=== PATIENT | female | born 1990 | race Caucasian/White ===

== ENCOUNTER 2018-08-18 14:03 | Emergency (ER) | payer OTHER, SELFPAY ==
[2018-08-18] MEDS ORDERED: LIDOCAINE 1% MPF 5 ML VIAL ONE (14:38)
--- NOTE | 2018-08-18 15:18 | ER ---
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 Pt has a chin laceration. Reports she didn't get a lot of sleep last night. Transition of care: patient was not received from another setting of care. Complicating Factors: There are no complicating factors for this patient. Onset of symptoms was August 18, 2018. Care prior to arrival: None. 14:09 Method Of Arrival: Ambulatory sv 14:09 Acuity: ANSHUL 3 sv 15:11 Risk Assessment: Do you want to hurt yourself or someone else? Patient reports no ph desire to harm self or others. Initial Sepsis Screen: Does the patient meet any 2 criteria? No. Patient's initial sepsis screen is negative. Does the patient have a suspected source of infection? No. Patient's initial sepsis screen is negative. Triage Assessment: 14:09 General: Appears in no apparent distress. uncomfortable, slender, Behavior is calm, sv cooperative. Pain: Denies pain. Neuro: Level of Consciousness is awake, alert, obeys commands, Oriented to person, place, time, situation, Moves all extremities. Full function Gait is steady, Speech is normal, Reports a syncopal episode. Respiratory: Airway is patent Respiratory effort is even, unlabored, Respiratory pattern is regular, symmetrical. Historical: - Allergies: 14:10 No Known Allergies; sv - PMHx: 14:10 None; sv - PSHx: 14:10 None; sv - Immunization history:: Flu vaccine is not up to date. - Social history:: Smoking status: Patient uses tobacco products, smokes one-half pack cigarettes per day. - Ebola Screening: : No symptoms or risks identified at this time. Screenin:09 Abuse screen: Denies threats or abuse. Denies injuries from another. Nutritional ph screening: No deficits noted. Tuberculosis screening: No symptoms or risk factors identified. Fall Risk Fall in past 12 months (25 points). No secondary diagnosis (0 pts). Assessment: 14:30 General: Appears in no apparent distress. comfortable, slender, well groomed, Behavior ph is calm, cooperative, appropriate for age, quiet, Denies fever, feeling ill. Pain: Denies pain. Neuro: Level of Consciousness is awake, alert, obeys commands, Oriented to person, place, time, situation, Reports dizziness, a syncopal episode Denies blurred vision headache. Cardiovascular: Reports fatigue, lightheadedness, syncope, Denies chest pain, shortness of breath, vomiting, Capillary refill < 3 seconds in bilateral fingers Patient's skin is warm and dry. Rhythm is regular. Respiratory: Airway is patent Respiratory effort is even, unlabored, Respiratory pattern is regular, symmetrical. GI: No signs and/or symptoms were reported involving the gastrointestinal system. Patient currently denies abdominal pain, nausea, vomiting. : No signs and/or symptoms were reported regarding the genitourinary system. Denies burning with urination, urinary frequency. Derm: Skin is pink, warm \\T\\ dry. Musculoskeletal: Circulation, motion, and sensation intact. Range of motion: intact in all extremities. Injury Description: Laceration sustained to chin is 0.5 to 2.5 cm long, not bleeding. 14:40 Reassessment: Patient appears in no apparent distress at this time. Patient is alert, ph oriented x 3, equal unlabored respirations, skin warm/dry/pink. Orthostatic BP obtained per ERP order, when pt moved from sitting to standing position HR noted to increase from 70 bpm to 135 bpm, (see vitals), pt placed on bedside medicaid service coordinator, rhythm sinus tach, ERP notified. 14:50 Reassessment: Pt refusing IV and fluids at this time, states, " I just want to get my ph stitches and go." Pt encouraged to stay for blood work and to receive IV fluids for dehydration, pt continues to refuse to stay, states, " I'll be sure and drink a lot of water when I get home." ERP notified. 15:02 Reassessment: Patient appears in no apparent distress at this time. ERP at bedside to ph speak w/ pt, pt continues to state that she wishes to leave after sutures are placed, pt to leave AMA. Vital Signs: 14:10 BP 110 / 72; Pulse 76; Resp 16; Temp 98.7; Pulse Ox 96% ; Weight 45.36 kg; Height 5 ft. sv 6 in. (167.64 cm); Pain 0/10; 14:40 BP 111 / 79 Supine; Pulse 63; ph 14:41 BP 106 / 69 Sitting; Pulse 130; ph 14:42 BP 75 / 65 Standing; Pulse 143; ph 14:10 Body Mass Index 16.14 (45.36 kg, 167.64 cm) sv ED Course: 14:06 Patient arrived in ED. as 14:10 Triage completed. sv 14:11 Arm band placed on Patient placed in an exam room, on a stretcher. sv 14:14 Mignon Calhoun RN is Primary Nurse. ph 14:16 Shannan Mendoza FNP-C is PHCP. kb 14:16 Jerardo Arriaza MD is Attending Physician. kb 14:33 EKG done, by ED staff, reviewed by Shannan PEÑA. em1 14:45 Patient has correct armband on for positive identification. Placed in gown. Bed in low ph position. Call light in reach. Side rails up X 1. bundles hanger on. Pulse ox on. NIBP on. 15:11 No provider procedures requiring assistance completed. Patient did not have IV access ph during this emergency room visit. 15:13 Assist provider with laceration repair on chin that was 2.5 cm. or less using sutures. ph Set up tray. Performed by Shannan PEÑA Patient tolerated well. Administered Medications: 14:56 Drug: Lidocaine (1 %) 1 vials Volume: 20 ml; Route: Infiltration; ph 15:42 Follow up: Response: No adverse reaction ph 15:13 CANCELLED (Patient Refused): NS 0.9% 1000 ml IV at 1000 ml once kb Outcome: 15:41 AMA AMA form signed ph 15:41 unknown 15:41 Instructed on encouraged to return to ED if symptoms worsen 15:43 Patient left the ED. ph Signatures: Shannan Mendoza FNP-C FNP-Ckb Verde, Stephanie, RN RN Klaudia Pérez Eric em1 Mignon Calhoun RN RN ph
--- NOTE | 2018-08-18 15:18 | EDPHYS ---
Physician Documentation [facility] Name: Venecia Aguilar Age: 28 yrs Sex: Female : 1990 Arrival Date: 08/18/2018 Time: 14:06 Bed 6 Private MD: ED Physician Jerardo Arriaza HPI: 08/18 14:31 This 28 yrs old Female presents to ER via Ambulatory with complaints of kb Laceration To Chin, Syncope. 14:31 The patient has a laceration related to: falling from a standing position, occurred at kb work, and there are no complicating factors. The injury was accidental. The laceration(s) is(are) located on the chin. Onset: The symptoms/episode began/occurred just prior to arrival. Associated signs and symptoms: Pertinent positives: dizziness, Pertinent negatives: deformity, heavy bleeding, loss of consciousness, numbness distal to injury, suspected foreign body. The patient has not experienced similar symptoms in the past. The patient has not recently seen a physician. Pt states she was laying down at work, got up too quickly, felt dizzy then passed out and fell causing laceration to chin. States she often gets dizzy when he changes positions too quickly. States "I feel fine now.". Historical: - Allergies: 14:10 No Known Allergies; sv - PMHx: 14:10 None; sv - PSHx: 14:10 None; sv - Immunization history:: Flu vaccine is not up to date. - Social history:: Smoking status: Patient uses tobacco products, smokes one-half pack cigarettes per day. - Ebola Screening: : No symptoms or risks identified at this time. ROS: 14:31 Constitutional: Negative for fever, chills, and weight loss, Eyes: Negative for injury, kb pain, redness, and discharge, ENT: Negative for injury, pain, and discharge, Neck: Negative for injury, pain, and swelling, Cardiovascular: Negative for chest pain, palpitations, and edema, Respiratory: Negative for shortness of breath, cough, wheezing, and pleuritic chest pain, Abdomen/GI: Negative for abdominal pain, nausea, vomiting, diarrhea, and constipation, MS/Extremity: Negative for injury and deformity. 14:31 Skin: Positive for laceration(s), of the chin. 14:31 Neuro: Positive for dizziness, syncope. Exam: 14:34 Constitutional: This is a well developed, well nourished patient who is awake, alert, kb and in no acute distress. Eyes: Pupils equal round and reactive to light, extra-ocular motions intact. Lids and lashes normal. Conjunctiva and sclera are non-icteric and not injected. Cornea within normal limits. Periorbital areas with no swelling, redness, or edema. ENT: Nares patent. No nasal discharge, no septal abnormalities noted. Tympanic membranes are normal and external auditory canals are clear. Oropharynx with no redness, swelling, or masses, exudates, or evidence of obstruction, uvula midline. Mucous membranes moist. Neck: Trachea midline, no thyromegaly or masses palpated, and no cervical lymphadenopathy. Supple, full range of motion without nuchal rigidity, or vertebral point tenderness. No Meningismus. Chest/axilla: Normal chest wall appearance and motion. Nontender with no deformity. No lesions are appreciated. Cardiovascular: Regular rate and rhythm with a normal S1 and S2. No gallops, murmurs, or rubs. Normal PMI, no JVD. No pulse deficits. Respiratory: Lungs have equal breath sounds bilaterally, clear to auscultation and percussion. No rales, rhonchi or wheezes noted. No increased work of breathing, no retractions or nasal flaring. Abdomen/GI: Soft, non-tender, with normal bowel sounds. No distension or tympany. No guarding or rebound. No evidence of tenderness throughout. MS/ Extremity: Pulses equal, no cyanosis. Neurovascular intact. Full, normal range of motion. Neuro: Awake and alert, GCS 15, oriented to person, place, time, and situation. Cranial nerves II-XII grossly intact. Motor strength 5/5 in all extremities. Sensory grossly intact. Cerebellar exam normal. Normal gait. 14:34 Head/face: Noted is no obvious of injury or deformity except a laceration(s), that is superficial, 3 cm(s), of the chin. Vital Signs: 14:10 BP 110 / 72; Pulse 76; Resp 16; Temp 98.7; Pulse Ox 96% ; Weight 45.36 kg; Height 5 ft. sv 6 in. (167.64 cm); Pain 0/10; 14:40 BP 111 / 79 Supine; Pulse 63; ph 14:41 BP 106 / 69 Sitting; Pulse 130; ph 14:42 BP 75 / 65 Standing; Pulse 143; ph 14:10 Body Mass Index 16.14 (45.36 kg, 167.64 cm) sv Laceration: 15:12 Wound Repair of 3cm ( 1.2in ) subcutaneous laceration to chin. Irregularly shaped.. kb Distal neuro/vascular/tendon intact. Anesthesia: Wound infiltrated with 2.5 mls of 1% lidocaine. Wound prep: Extensive cleansing with hibiclenz by me, Wound irrigation with saline by me. Skin closed with 6 5-0 Prolene using interrupted sutures and sterile technique. Dressed with Neosporin. Patient tolerated well. MDM: 14:16 Patient medically screened. kb 14:34 Data reviewed: vital signs, nurses notes. Data interpreted: Pulse oximetry: on room air kb is 96 %. Interpretation: normal. 15:14 Refusal of service: The patient/guardian displays adequate decision making capability kb and despite a detailed discussion of alternatives, benefits, risks, and consequences refuses: all lab tests, Medications. ED course: Pt educated on need for IV fluids due to positive orthostatics. Pt refuses IV, labs and IV fluids. "I just want to get my chin fixed and go." Educated that the dizziness upon standing and syncope are caused by orthostatic hypotension and that the fluids would help her symptoms. Pt still refuses treatment. Mother states "I'll watch her." Educated to increase fluid intake. 15:50 ED course: Dr Arriaza also discussed need for treatment with pt. Pt still refused kb intervention. 08/18 14:23 Order name: EKG; Complete Time: 14:24 kb 08/18 14:23 Order name: Prolene, Sutures; Complete Time: 14:56 kb 08/18 14:23 Order name: Dressing - Wound; Complete Time: 14:56 kb 08/18 14:23 Order name: Gloves, Sterile; Complete Time: 14:56 kb 08/18 14:23 Order name: Setup Suture Tray; Complete Time: 14:56 kb 08/18 14:23 Order name: EKG - Nurse/Tech; Complete Time: 14:33 kb 08/18 14:23 Order name: Orthostatics; Complete Time: 15:42 kb Administered Medications: 14:56 Drug: Lidocaine (1 %) 1 vials Volume: 20 ml; Route: Infiltration; ph 15:42 Follow up: Response: No adverse reaction ph 15:13 CANCELLED (Patient Refused): NS 0.9% 1000 ml IV at 1000 ml once Disposition: 17:31 Co-signature as Attending Physician, Jerardo Arriaza MD. gs 17:31 spoke to pt at length begged her to stay and get fluids pt refused. Disposition: 08/18/18 15:17 Patient has left against medical advice. Impression: Syncope and collapse, Orthostatic hypotension, Laceration without foreign body of unspecified part of neck - chin. - Patients states they are going to Home. - Condition is Fair. - Discharge Instructions: Orthostatic Hypotension, Facial Laceration, [id number], Syncope, [id number]. Work release form form. Follow up: Emergency Department; When: As needed; Reason: Worsening of condition. Follow up: Private Physician; When: 2 - 3 days; Reason: Recheck today's complaints, Continuance of care, Re-evaluation by your physician. - Problem is new. - Symptoms are unchanged. Signatures: Dispatcher [employer] EDIN Shannan Mendoza, KAITY-C REGISTERED MEDICAL TRANSCRIPTIONIST-Meri Cole, RN RN Mignon Almanza RN RN ph Starr, Gregory, MD MD Corrections: (The following items were deleted from the chart) 15:13 15:13 NS 0.9% 1000 ml IV at 1000 ml once ordered. kb kb 15:13 15:13 IV Saline Lock ordered. kb kb 15:17 14:24 Head Brain Wo Cont+CT.RAD.BRZ ordered. [facility] 15:43 15:17 08/18/2018 15:17 Patients has left against medical advice. Impression: Syncope ph and collapse; Orthostatic hypotension; Laceration without foreign body of unspecified part of neck - chin. Patient states they are going to Home. Condition is Fair. Follow up: Emergency Department; When: As needed; Reason: Worsening of condition. Follow up: Private Physician; When: 2 - 3 days; Reason: Recheck today's complaints, Continuance of care, Re-evaluation by your physician. Problem is new. Symptoms are unchanged. kb
--- NOTE | 2018-08-18 22:41 | EKG ---
Test Date: 2018-08-18 Test Time: 14:27:28 [employer]er: NICOLETTE MEASUREMENT RESULTS: Intervals: Rate: 73 [place]: 154 QRSD: 82 QT: 402 QTc: 442 [place]: P: 66 [place]: 154 QRS: 75 T: 73 INTERPRETIVE STATEMENTS: Normal sinus rhythm with sinus arrhythmia Normal ECG Compared to ECG 04/03/2009 16:39:24 No significant changes Electronically Signed On 08-18-18 22:40:44 FIRST CRUSHER by Matty Mcpherson
== END 2018-08-18 15:43 | disposition left against medical advice (07) ==
LOC: ER 14:03
PROC: 0JQ10ZZ Repair Face Subcutaneous Tissue and Fascia, Open Approach (ICD-10-PCS; principal; 2018-08-18)
DX: S01.81XA Laceration without foreign body of other part of head, initial encounter (principal); I95.1 Orthostatic hypotension; W18.39XA Other fall on same level, initial encounter; Y93.89 Activity, other specified; Y92.89 Other specified places as the place of occurrence of the external cause; Y99.8 Other external cause status; F17.210 Nicotine dependence, cigarettes, uncomplicated
CPT/HCPCS: 93005; 99284

== ENCOUNTER 2018-08-24 08:44 | Emergency (ER) | payer SELFPAY ==
[2018-08-24] MEDS ORDERED: NA CHLORIDE 0.9% 1,000 ML ONE (09:29)
[2018-08-24 09:33] LABS: Urine Blood 2+ (NEG); Urine Glucose NEGATIVE (NEG); Urine Protein 1+ (NEG); Urine pH 5.5 (5.0-7.0)
[2018-08-24 09:33] LABS: Urine Bacteria <20 /HPF (<20); Urine Culture Reflex Order NOT NEEDED; Urine Mucus 2+ /HPF (NONE SEEN); Urine RBC 20-50 /HPF (NONE SEEN)
[2018-08-24 10:39] LABS: Albumin 3.9 g/dL (3.4-5.0); Bilirubin Direct 0.2 mg/dL (0-0.2); Bilirubin Total 0.7 mg/dL (0.2-1.0); Potassium 3.4 mmol/L (3.5-5.1); Protein, Total 7.7 g/dL (6.4-8.2); Thyroid Stimulating Hormone 0.363 uIU/mL (0.360-3.740)
[2018-08-24 11:28] LABS: Benzodiazepines NEGATIVE (NEGATIVE); Cocaine POSITIVE (NEGATIVE); METHAMPHETAM NEGATIVE (NEGATIVE); Phencyclidine NEGATIVE (NEGATIVE)
[2018-08-24 11:29] LABS: Barbiturates NEGATIVE (NEGATIVE); Methadone NEGATIVE (NEGATIVE); Opiates NEGATIVE (NEGATIVE); THC Cannibis POSITIVE (NEGATIVE)
--- NOTE | 2018-08-24 12:40 | ER ---
Nurse's Notes [facility] Name: Venecia Aguilar Age: 28 yrs Sex: Female : 1990 Arrival Date: 08/24/2018 Time: 08:46 Bed 14 Private MD: Diagnosis: Abnormal uterine and vaginal bleeding, unspecified;Other stimulant abuse-Cocaine, THC Presentation: 08/24 08:58 Presenting complaint: Patient states: "For the last 2 weeks every time my boyfriend and jl7 I have intercourse I bleed. For the last 3 days the bleeding hasn't stopped." Reports going to the doctor yesterday and they put her on an antibiotic for possible UTI. Transition of care: patient was not received from another setting of care. Onset of symptoms was August 21, 2018. Risk Assessment: Do you want to hurt yourself or someone else? Patient reports no desire to harm self or others. Initial Sepsis Screen: Does the patient meet any 2 criteria? No. Patient's initial sepsis screen is negative. Does the patient have a suspected source of infection? No. Patient's initial sepsis screen is negative. Care prior to arrival: None. 08:58 Method Of Arrival: Ambulatory [facility] 08:58 Acuity: ANSHUL 3 jl7 Triage Assessment: 09:01 General: Appears in no apparent distress. uncomfortable, Behavior is cooperative, jl7 anxious, crying. Pain: Denies pain. EENT: No signs and/or symptoms were reported regarding the EENT system. Neuro: Level of Consciousness is awake, alert, obeys commands, Oriented to person, place, time, situation. Cardiovascular: Respiratory: Airway is patent Respiratory effort is even, unlabored, Respiratory pattern is regular, symmetrical. GI: No signs and/or symptoms were reported involving the gastrointestinal system. : Reports vaginal bleeding that is bright red, with clots. Derm: Skin is pink, warm \\T\\ dry. RETAIL GROCER: 09:01 LMP 08/07/2018 jl7 Historical: - Allergies: 09:01 No Known Allergies; jl7 - Home Meds: 09: None [Active]; jl7 - PMHx: 09: None; jl7 - PSHx: 09: None; jl7 - Immunization history:: Adult Immunizations unknown. - Social history:: Smoking status: Patient uses tobacco products, smokes one-half pack cigarettes per day, Patient uses street drugs, marijuana. - Ebola Screening: : No symptoms or risks identified at this time. Screenin:15 Abuse screen: Denies threats or abuse. Denies injuries from another. Nutritional [facility] screening: No deficits noted. Tuberculosis screening: No symptoms or risk factors identified. Fall Risk IV access (20 points). Total Ramesh Fall Scale indicates No Risk (0-24 pts). Assessment: 09:15 General: See triage assessment. [facility] 10:15 Reassessment: Patient appears in no apparent distress at this time. No changes from [facility] previously documented assessment. Patient and/or family updated on plan of care and expected duration. Pain level reassessed. Patient is alert, oriented x 3, equal unlabored respirations, skin warm/dry/pink. 11:15 Reassessment: Patient appears in no apparent distress at this time. Patient and/or [facility] family updated on plan of care and expected duration. Pain level reassessed. Patient is alert, oriented x 3, equal unlabored respirations, skin warm/dry/pink. 11:40 Reassessment: Pt prescribed Cipro yesterday for UTI. [facility] 12:35 Reassessment: Pt yelling at her mom. Pt attempted to leave the facility with the IV in [facility] her arm, informed pt that if she left with the IV we would have to call the report manager, pt turned around and ripped the IV out then left the facility. Pt's mom apologized. Pt got into the mom's vehicle. Vital Signs: 09:01 BP 121 / 76; Pulse 100; Resp 16 S; Temp 98.2; Pulse Ox 100% on R/A; Weight 47.17 kg [facility] (R); Height 5 ft. 6 in. (167.64 cm) (R); Pain 0/10; 10:22 BP 90 / 57; Pulse 64; Resp 15; Temp 98.4(O); Pulse Ox 100% on R/A; 5 11:48 BP 99 / 60; Pulse 89; Resp 16 S; Pulse Ox 100% on R/A; 7 09:01 Body Mass Index 16.79 (47.17 kg, 167.64 cm) [facility] ED Course: 08:46 Patient arrived in ED. mr 08:48 Yu Mariscal, RN is Primary Nurse. 7 08:50 [facility] snw 08:50 Iker Schafer MD is Attending Physician. [facility] 09:00 Triage completed. jl7 09:01 Arm band placed on right wrist. jl7 09:15 Patient has correct armband on for positive identification. Bed in low position. Call [facility] light in reach. Side rails up X 1. Pulse ox on. NIBP on. Warm blanket given. :27 Urine collected: clean catch specimen, cloudy. [facility] : Urine Drug Screen Sent. [facility] : Urine Culture Sent. [facility] : Urine Microscopic Only Sent. [facility] :30 Inserted saline lock: 20 gauge in right antecubital area, using aseptic technique. [facility] Blood collected. :30 Initial lab(s) drawn, by me, sent to lab. 7 12:35 No provider procedures requiring assistance completed. IV discontinued, pt ripped the [facility] IV out, unsure if bleeding was controlled at this time. Administered Medications: 09:50 Drug: NS 0.9% 1000 ml Route: IV; Rate: 1 bolus; Site: right antecubital; 7 11:00 Follow up: IV Status: Completed infusion [facility] Outcome: 12:40 Discharge ordered by . [facility] 12:41 Discharged to home ambulatory. jl7 12:41 Condition: stable 12:41 Discharge instructions given to family, Instructed on discharge instructions, follow up and referral plans. Demonstrated understanding of instructions, follow-up care. 13:04 Patient left the ED. [facility] Signatures: Deneen Galan FNP-C FNP-Diana Indy Francois Sherri [facility] Yu Mariscal, RN RN 7
--- NOTE | 2018-08-24 12:41 | EDPHYS ---
Physician Documentation [facility] Name: Venecia Aguilar Age: 28 yrs Sex: Female : 1990 Arrival Date: 08/24/2018 Time: 08:46 Bed 14 Private MD: ED Physician Iker Schafer HPI: 08/24 09:11 This 28 yrs old Female presents to ER via Ambulatory with complaints of snw Vaginal Bleeding. 09:11 The patient presents with vaginal bleeding that is heavy, with clots. Onset: The snw symptoms/episode began/occurred gradually, 2 week(s) ago, and became worse yesterday. Associated signs and symptoms: Pertinent positives: vaginal bleeding. Severity of symptoms: At their worst the symptoms were moderate. The patient is sexually active, reportedly has a single partner, does not use protection during intercourse. The patient's method of control includes depo. It is unknown whether or not the patient has had similar symptoms in the past. The patient has been recently seen by a physician: The patient has been recently seen at the [facility] Emergency Department, last week, left AMA 2nd with hypotension and hypovolemia. 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 - Social history:: Smoking status: Patient uses tobacco products, smokes one-half pack cigarettes per day, Patient uses street drugs, marijuana. - Ebola Screening: : No symptoms or risks identified at this time. ROS: 09:16 Constitutional: Negative for fever, chills, and weight loss, Eyes: Negative for injury, snw pain, redness, and discharge, ENT: Negative for injury, pain, and discharge, Neck: Negative for injury, pain, and swelling, Cardiovascular: Negative for chest pain, palpitations, and edema, Respiratory: Negative for shortness of breath, cough, wheezing, and pleuritic chest pain, Abdomen/GI: Negative for abdominal pain, nausea, vomiting, diarrhea, and constipation, Back: Negative for injury and pain, MS/Extremity: Negative for injury and deformity, Skin: Negative for injury, rash, and discoloration, Neuro: Negative for headache, weakness, numbness, tingling, and seizure. 09:16 : Positive for vaginal bleeding. Exam: 09:16 Constitutional: This is a well developed, cachectic patient who is awake, alert, and snw anxious. Head/Face: Normocephalic, atraumatic. Eyes: Pupils equal round and reactive to light, extra-ocular motions intact. Lids and lashes normal. Conjunctiva and sclera are non-icteric and not injected. Cornea within normal limits. Periorbital areas with no swelling, redness, or edema. ENT: Nares patent. No nasal discharge, no septal abnormalities noted. Tympanic membranes are normal and external auditory canals are clear. Oropharynx with no redness, swelling, or masses, exudates, or evidence of obstruction, uvula midline. Mucous membranes moist. Neck: Trachea midline, no thyromegaly or masses palpated, and no cervical lymphadenopathy. Supple, full range of motion without nuchal rigidity, or vertebral point tenderness. No Meningismus. Chest/axilla: Normal chest wall appearance and motion. Nontender with no deformity. No lesions are appreciated. Cardiovascular: Tachycardic rate and rhythm with a normal S1 and S2. No gallops, murmurs, or rubs. Normal PMI, no JVD. No pulse deficits. Respiratory: Lungs have equal breath sounds bilaterally, clear to auscultation and percussion. No rales, rhonchi or wheezes noted. No increased work of breathing, no retractions or nasal flaring. Abdomen/GI: Soft, non-tender, with normal bowel sounds. No distension or tympany. No guarding or rebound. No evidence of tenderness throughout. Back: No spinal tenderness. No costovertebral tenderness. Full range of motion. Skin: Warm, dry with normal turgor. Normal color with no rashes, no lesions, and no evidence of cellulitis. MS/ Extremity: Pulses equal, no cyanosis. Neurovascular intact. Full, normal range of motion. Neuro: Awake and alert, GCS 15, oriented to person, place, time, and situation. Cranial nerves II-XII grossly intact. Motor strength 5/5 in all extremities. Sensory grossly intact. Cerebellar exam normal. Normal gait. Vital Signs: 09:01 BP 121 / 76; Pulse 100; Resp 16 S; Temp 98.2; Pulse Ox 100% on R/A; Weight 47.17 kg jl7 (R); Height 5 ft. 6 in. (167.64 cm) (R); Pain 0/10; 10:22 BP 90 / 57; Pulse 64; Resp 15; Temp 98.4(O); Pulse Ox 100% on R/A; mh5 11:48 BP 99 / 60; Pulse 89; Resp 16 S; Pulse Ox 100% on R/A; jl7 09:01 Body Mass Index 16.79 (47.17 kg, 167.64 cm) jl7 MDM: 08:50 Patient medically screened. snw 12:48 Data reviewed: vital signs, nurses notes. Data interpreted: Pulse oximetry: on room air snw is 100 %. Interpretation: normal. Counseling: I had a detailed discussion with the patient and/or guardian regarding: the historical points, exam findings, and any diagnostic results supporting the discharge/admit diagnosis, lab results, to return to the emergency department if symptoms worsen or persist or if there are any questions or concerns that arise at home. Special discussion: Based on the history and exam findings, there is no indication for further emergent testing or inpatient evaluation. I discussed with the patient/guardian the need to see the OB Gyne specialist for further evaluation of the symptoms. ED course: pt forcefully removed her own IV and stormed out of ED. 08/24 08:59 Order name: Basic Metabolic Panel; Complete Time: 10:59 w 08/24 08:59 Order name: CBC with Diff; Complete Time: 11:51 w 08/24 08:59 Order name: Hepatic Function; Complete Time: 10:59 w 08/24 08:59 Order name: TS; Complete Time: 10:59 w 08/24 08:59 Order name: TSH; Complete Time: 10:59 snw 08/24 09:10 Order name: Urine Drug Screen; Complete Time: 11:51 w 08/24 08:59 Order name: IV Saline Lock; Complete Time: 10:48 w 08/24 08:59 Order name: Labs collected and sent; Complete Time: 10:48 snw 08/24 09:10 Order name: Urine Test (obtain specimen); Complete Time: 09:27 w 08/24 09:10 Order name: Urine Culture snw 08/24 09:10 Order name: Urine Microscopic Only; Complete Time: 09:51 snw 08/24 09:28 Order name: Urine Dipstick--Ancillary (enter results); Complete Time: 09:51 eb 08/24 09:28 Order name: Urine --Ancillary (enter results); Complete Time: 09:51 eb 08/24 09:10 Order name: Urine Dipstick-Ancillary (obtain specimen); Complete Time: 09:27 snw Administered Medications: 09:50 Drug: NS 0.9% 1000 ml Route: IV; Rate: 1 bolus; Site: right antecubital; jl7 11:00 Follow up: IV Status: Completed infusion jl7 Disposition: 14:31 Co-signature as Attending Physician, Iker Schafer MD. rn Disposition: 08/24/18 12:40 Discharged to Home. Impression: Abnormal uterine and vaginal bleeding, unspecified, Other stimulant abuse - Cocaine, THC. - Condition is Stable. - Discharge Instructions: Abnormal Uterine Bleeding, Stimulant Use Disorder-Cocaine. - Medication Reconciliation Form, Thank You Letter, Antibiotic Education, Prescription Opioid Use form. - Follow up: Private Physician; When: 1 - 2 days; Reason: Recheck today's complaints, Continuance of care, Re-evaluation by your physician. Signatures: Dispatcher [employer] EDOK Deneen Galan, CREDENTIALS SPECIALIST-C CREDENTIALS SPECIALIST-Csnw Iker Schafer MD MD rn Leal, Jahala, RN RN jl7 Corrections: (The following items were deleted from the chart) 13:04 12:40 08/24/2018 12:40 Discharged to Home. Impression: Abnormal uterine and vaginal jl7 bleeding, unspecified; Other stimulant abuse - Cocaine, THC. Condition is Stable. Forms are Medication Reconciliation Form, Thank You Letter, Antibiotic Education, Prescription Opioid Use. Follow up: Private Physician; When: 1 - 2 days; Reason: Recheck today's complaints, Continuance of care, Re-evaluation by your physician. snw
== END 2018-08-24 13:04 | disposition home or self-care (01) ==
LOC: ER 08:44
DX: N93.9 Abnormal uterine and vaginal bleeding, unspecified (principal); F14.10 Cocaine abuse, uncomplicated; F12.10 Cannabis abuse, uncomplicated; F17.210 Nicotine dependence, cigarettes, uncomplicated
CPT/HCPCS: 36415; 80048; 80076; 80307; 81003; 81015; 81025; 84443; 85025; 86850; 86900; 86901; 87086; 87088; J7030

== ENCOUNTER 2021-12-19 05:07 | Emergency (ER) | payer OTHER, SELFPAY ==
--- OUTSIDE RECORDS SUMMARY | 2021-12-19 05:12 | XMS REPORT | Continuity of Care Document ---
:1990 Author Organization Formerly [facility] t Address [address] [place] [address] Care Team Providers Name Role Phone Sumeet BRICENO, N Primary Care Physician COLETTE, Brady Attending Clinician Unavailable Visit, Nurse Attending Clinician Unavailable Colette MATHIS, O Attending Clinician AKINSIPE, C Attending Clinician Unavailable Akinsipe HUNTER, C Attending Clinician Doctor Unassigned, Name Attending Clinician Unavailable Lo BRICENO, R Attending Clinician Shauna BLANCHARD Attending Clinician Unavailable Darron HOBSON, M Attending Clinician Louie GARCIA Attending Clinician Jennifer Keen MD Attending Clinician Sanchez HOBSON, M Attending Clinician Sumeet BRICENO, N Attending Clinician Jerome FAY Attending Clinician Unavailable Provider, Temp Attending Clinician Unavailable Hui HUNTER Attending Clinician HUI Attending Clinician Unavailable Ultrasound Attending Clinician Unavailable Jenni HOBSON R Attending Clinician Marcin HOBSON Attending Clinician Darron HOBSON, M Admitting Clinician Payers Payer Name Policy Type Policy Number Effective Date Expiration Date [facility] [id number] 2019 CHOICE MEDICAID 00:00:00 Problems Condition Condition Condition Status Onset Resolution Last Treating Co mments Source Name Details Category Date Date Treatment Clinician Date Other Other Disease Active Univers general general 2-11 ity of counseling counseling 00:[place] and advice and advice 00 Wy dical [facility] contracept contracept viktoriya viktoriya management management Irregular Irregular Disease Active Uni vers menstrual menstrual 2-11 ity of cycle cycle 00:00: [place] 00 [facility] Depot Depot Disease Active Univers contracept contracept 2-11 it y of ion ion 00:00: [place] 00 [facility] Breakthrou Breakthrou Disease Active U nivers gh gh 2-11 ity of bleeding bleeding 00:00: [place] on depo on depo 00 [facility] provera provera [place] Well woman Well woman Disease Active 2020-0 U nivers exam exam 8-25 ity of 00:00: [place] 00 [facility] Anemia, Anemia, Disease Active 2020-0 Univers 7-10 it y of 00:00: [place] 00 [facility] Disease Active 2020-0 Univers (spontaneo (spontaneo 7- it y of us vaginal [place] vaginal 00:[place] delivery[place] delivery[place] 00 [facility] Single Single Disease Active 2020-0 Univers live live 7-09 it y of 00:00: [place] 00 [facility] Laceration Laceration Disease Active 2020-0 U nivers , , 7-09 ity of obstetrica obstetrica 00:[place] l, minor l, minor 00 Medica l [place] History of History of Disease Active 2020-0 U nivers depression depression 7- it y of 00:00: [place] 00 [facility] 39 weeks 39 weeks Disease Active 2020-0 Unive rs gestation gestation 7-08 ity of of of 00:00: [place] 00 [facility] Constipati Constipati Disease Active 2020-0 U nivers on during on during 1-24 it[place] of 00:[place] in second in second 00 [facility] trimester trimester Bran ch Rubella Rubella Disease Active 2018-08 Univers non-immune non-immune 2-30 it y of status, status, 00:00: [place] [facility] Susceptibl Susceptibl Disease Active 2018-08 U nivers e to e to 2-30 ity of varicella varicella 00:00[place] (non-immun (non-immun 00 Me dical e), e), Branch currently currently BMI less BMI less Disease Active 2018-08 Unive rs than than 2 ity of 19,adult 19,adult 00:00: [place] 00 Medical [facility] Supervisio Supervisio Disease Active 2018-08 U nivers n of high n of high 10-03 ity of risk risk 00:00: [place] 00 Medi angie in third in third Branch trimester trimester Multiparit Multiparit Disease Active 2018-08 U nivers y y 10-03 ity of 00:00: [place] 00 Medical Branch Cessation Cessation Disease Active 2018-08 Uni vers of tobacco of tobacco 10-03 it y of use in use in 00:00: [place] previous previous 00 Medica l 12 months 12 months Bran ch Allergies, Adverse Reactions, Alerts Allergy Allergy Status Severity Reaction(s) Onset Inactive Treating Comm ents Source Name Type Date Date Clinician Cefdinir Propensi Active Rash 2018-08 Univer s ty to 10-03 ity of adverse 00:00: [place] reaction 00 Medical s Branch CEFDINIR DRUG Active Rash 2018-08 Univers INGREDI 10-03 ity of 00:00: [place] 00 Medical Branch Social History Social Habit Start Date Stop Date Quantity Comments Source ASSERTION 2019-05-29 University of 00:00:00 [facility] Branch History of tobacco Cigarette Smoker University of use [place] [facility] Exposure to Not sure [place] of SARS-CoV-2 (event) [place] [facility] History [facility] University o f Alcohol Std Drinks [place] [facility] History [facility] University o f Alcohol Binge [place] [facility] al [facility] History [facility] University o f Alcohol Comment [place] Med ical Branch Alcohol intake 2020-09-17 2020-09-17 Lifetime University of 00:00:00 00:00:00 non-drinker [place] Medical (finding) Branch Cigarettes smoked 2020-03-30 2020-03-30 Univers ity of current (pack per 00:00[facility]00 [facility] [place] [facility] Branch Tobacco use and 2020-03-30 2020-03-30 Never used Universit y of exposure 00:00:00 00:00:00 [place] [facility] History SDOH 2019-08-02 2019-08-02 1 University o f Alcohol Frequency 00:00:00 00:00:00 [facility] edical Branch Tobacco Comment 2019-08-02 2019-08-02 quit for Universit y of 00:00:00 00:00:00 [facility] Sex Assigned At [birth year] Universit y of 00:00:00 00:00:00 [facility] Smoking Status Start Date Stop Date Source Current every day 2020-03-30 00:00:00 [facility] smoker [facility] Former smoker 2020-03-06 00:00:00 2020-03-06 00:00:00 [facility] [place] [facility] Medications Ordered Filled Start Stop Current Ordering Indication Dosage Frequency Signature Comments Components Source Medication Medication Date Date Medication? Clinician (SIG) Name Name medroxyPROG 2020-0 2020- No [id number] 150mg Univers ESTERone 04-14- ity of (DEPO-PROVE 19:45: 19:44 [place] RA) 00 :00 Medical injection Branch 150 mg medroxyPROG 2020-0 2020- No [id number] 150mg 150 mg, Univers ESTERone 04-14 Intramuscu ity of (DEPO-PROVE 19:45: 19:44 lar, [place] RA) 00 :00 [id number], Medical injection 4 doses, Branch 150 mg First dose on 04/14/20 at 1445, Last dose on Mon12/22/20 at 1445, Routine medroxyPROG 2020-0 2020- No [id number] 150mg Univers ESTERone 04-14- ity of (DEPO-PROVE 19:45: 19:44 [place] RA) 00 :00 Medical injection Branch 150 mg medroxyPROG 2020-0 2020- No [id number] 150mg Univers ESTERone 04-14- ity of (DEPO-PROVE 19:45: 19:44 [place] RA) 00 :00 Medical injection Branch 150 mg medroxyPROG 2020-0 2020- No [id number] 150mg Univers ESTERone 04-14-10 ity of (DEPO-PROVE 19:45: 19:44 [place] RA) 00 :00 Medical injection Branch 150 mg medroxyPROG 2020-0 2020- No [id number] 150mg Univers ESTERone 04-14-10 ity of (DEPO-PROVE 19:45: 19:44 [place] RA) 00 :00 Medical injection Branch 150 mg measles, 2020-0 2020- No .5mL 0.5 mL, Unive rs mumps + 7-10 07-10 Subcutaneo ity o f rubella vac 13:45: 16:38 us, ONCE, [place] (M-M-R II) 00 :00 1 dose, Medica l 1,000-12,50 Fri Branch 0 02/14/20 at TCID50/0.5 0845, mL Routine injection 0.5 mL ascorbic 2020-0 Yes 500mg 500 mg, Unive rs acid 7-10 Oral, BID, ity of (vitamin C) 13:00: First dose [place] (VITAMIN C) 00 on Fri Medica l tablet 500 02/14/20 at [facility] mg 0800, Until Discontinu ed, Routine ferrous 2020-0 Yes 325mg 325 mg, Univer s sulfate 7-10 Oral, BID, ity of tablet 325 13:00: First dose [place] mg 00 on Fri Medical 02/14/20 at Branch 0800, Until Discontinu ed, Routine 2020-0 Yes [id number] 1{tbl} Take 1 U nivers vitamin 7-10 tablet by ity of w/FA tablet 00:00: mouth [place] 00 daily. Medical Branch docusate 2020-0 Yes [id number] 240mg Take 1 Un deirdre calcium 240 7-10 capsule by it y of mg capsule 00:00: mouth once [place] 00 daily as Medical needed for Branch Constipati on. ferrous 2020-0 Yes [id number] 325mg Take 1 Uni vers sulfate 325 7-10 tablet by ity of mg (65 mg 00:00: mouth 2 [place] iron) 00 (two) Medical tablet times Branch daily. ibuprofen 2020-0 Yes [id number] 600mg Take 1 U nivers 600 mg 7-10 tablet by ity of tablet 00:00: mouth [place] 00 every 6 Medical (six) Branch hours as needed (Pain). Take with food or milk. 2020-0 Yes [id number] 1{tbl} Take 1 U nivers vitamin 7-10 tablet by ity of w/FA tablet 00:00: mouth [place] 00 daily. Medical Branch docusate 2020-0 Yes [id number] 240mg Take 1 Un deirdre calcium 240 7-10 capsule by it y of mg capsule 00:00: mouth once [place] 00 daily as Medical needed for Branch Constipati on. ferrous 2020-0 Yes [id number] 325mg Take 1 Uni vers sulfate 325 7-10 tablet by ity of mg (65 mg 00:00: mouth 2 [place] iron) 00 (two) Medical tablet times Branch daily. ibuprofen 2020-0 Yes [id number] 600mg Take 1 U nivers 600 mg 7-10 tablet by ity of tablet 00:00: mouth [place] 00 every 6 Medical (six) Branch hours as needed (Pain). Take with food or milk. 2020-0 Yes [id number] 1{tbl} Take 1 U nivers vitamin 7-10 tablet by ity of w/FA tablet 00:00: mouth [place] 00 daily. Medical Branch docusate 2020-0 Yes [id number] 240mg Take 1 Un deirdre calcium 240 7-10 capsule by it y of mg capsule 00:00: mouth once [place] 00 daily as Medical needed for Branch Constipati on. ferrous 2020-0 Yes [id number] 325mg Take 1 Uni vers sulfate 325 7-10 tablet by ity of mg (65 mg 00:00: mouth 2 [place] iron) 00 (two) Medical tablet times Branch daily. ibuprofen 2020-0 Yes [id number] 600mg Take 1 U nivers 600 mg 7-10 tablet by ity of tablet 00:00: mouth [place] 00 every 6 Medical (six) Branch hours as needed (Pain). Take with food or milk. 2020-0 Yes [id number] 1{tbl} Take 1 U nivers vitamin 7-10 tablet by ity of w/FA tablet 00:00: mouth [place] 00 daily. Medical Branch docusate 2020-0 Yes [id number] 240mg Take 1 Un deirdre calcium 240 7-10 capsule by it y of mg capsule 00:00: mouth once [place] 00 daily as Medical needed for Branch Constipati on. ferrous 2020-0 Yes [id number] 325mg Take 1 Uni vers sulfate 325 7-10 tablet by ity of mg (65 mg 00:00: mouth 2 [place] iron) 00 (two) Medical tablet times Branch daily. ibuprofen 2020-0 Yes [id number] 600mg Take 1 U nivers 600 mg 7-10 tablet by ity of tablet 00:00: mouth [place] 00 every 6 Medical (six) Branch hours as needed (Pain). Take with food or milk. 2020-0 Yes [id number] 1{tbl} Take 1 U nivers vitamin 7-10 tablet by ity of w/FA tablet 00:00: mouth [place] 00 daily. Medical Branch docusate 2020-0 Yes [id number] 240mg Take 1 Un deirdre calcium 240 7-10 capsule by it y of mg capsule 00:00: mouth once [place] 00 daily as Medical needed for Branch Constipati on. ferrous 2020-0 Yes [id number] 325mg Take 1 Uni vers sulfate 325 7-10 tablet by ity of mg (65 mg 00:00: mouth 2 [place] iron) 00 (two) Medical tablet times Branch daily. ibuprofen 2020-0 Yes [id number] 600mg Take 1 U nivers 600 mg 7-10 tablet by ity of tablet 00:00: mouth [place] 00 every 6 Medical (six) Branch hours as needed (Pain). Take with food or milk. 2020-0 Yes [id number] 1{tbl} Take 1 U nivers vitamin 7-10 tablet by ity of w/FA tablet 00:00: mouth [place] 00 daily. Medical Branch docusate 2020-0 Yes [id number] 240mg Take 1 Un deirdre calcium 240 7-10 capsule by it y of mg capsule 00:00: mouth once [place] 00 daily as Medical needed for Branch Constipati on. ferrous 2020-0 Yes [id number] 325mg Take 1 Uni vers sulfate 325 7-10 tablet by ity of mg (65 mg 00:00: mouth 2 [place] iron) 00 (two) Medical tablet times Branch daily. ibuprofen 2020-0 Yes [id number] 600mg Take 1 U nivers 600 mg 7-10 tablet by ity of tablet 00:00: mouth [place] 00 every 6 Medical (six) Branch hours as needed (Pain). Take with food or milk. 2020-0 Yes [id number] 1{tbl} Take 1 U nivers vitamin 7-10 tablet by ity of w/FA tablet 00:00: mouth [place] 00 daily. Medical Branch docusate 2020-0 Yes [id number] 240mg Take 1 Un deirdre calcium 240 7-10 capsule by it y of mg capsule 00:00: mouth once [place] 00 daily as Medical needed for Branch Constipati on. ferrous 2020-0 Yes [id number] 325mg Take 1 Uni vers sulfate 325 7-10 tablet by ity of mg (65 mg 00:00: mouth 2 [place] iron) 00 (two) Medical tablet times Branch daily. ibuprofen 2020-0 Yes [id number] 600mg Take 1 U nivers 600 mg 7-10 tablet by ity of tablet 00:00: mouth [place] 00 every 6 Medical (six) Branch hours as needed (Pain). Take with food or milk. 2020-0 Yes [id number] 1{tbl} Take 1 U nivers vitamin 7-10 tablet by ity of w/FA tablet 00:00: mouth [place] 00 daily. Medical Branch docusate 2020-0 Yes [id number] 240mg Take 1 Un deirdre calcium 240 7-10 capsule by it y of mg capsule 00:00: mouth once [place] 00 daily as Medical needed for Branch Constipati on. ferrous 2020-0 Yes [id number] 325mg Take 1 Uni vers sulfate 325 7-10 tablet by ity of mg (65 mg 00:00: mouth 2 [place] iron) 00 (two) Medical tablet times Branch daily. ibuprofen 2020-0 Yes [id number] 600mg Take 1 U nivers 600 mg 7-10 tablet by ity of tablet 00:00: mouth [place] 00 every 6 Medical (six) Branch hours as needed (Pain). Take with food or milk. 2020-0 Yes [id number] 1{tbl} Take 1 U nivers vitamin 7-10 tablet by ity of w/FA tablet 00:00: mouth [place] 00 daily. Medical Branch docusate 2020-0 Yes [id number] 240mg Take 1 Un deirdre calcium 240 7-10 capsule by it y of mg capsule 00:00: mouth once [place] 00 daily as Medical needed for Branch Constipati on. ferrous 2020-0 Yes [id number] 325mg Take 1 Uni vers sulfate 325 7-10 tablet by ity of mg (65 mg 00:00: mouth 2 [place] iron) 00 (two) Medical tablet times Branch daily. ibuprofen 2020-0 Yes [id number] 600mg Take 1 U nivers 600 mg 7-10 tablet by ity of tablet 00:00: mouth [place] 00 every 6 Medical (six) Branch hours as needed (Pain). Take with food or milk. 2020-0 Yes [id number] 1{tbl} Take 1 U nivers vitamin 7-10 tablet by ity of w/FA tablet 00:00: mouth [place] 00 daily. Medical Branch docusate 2020-0 Yes [id number] 240mg Take 1 Un deirdre calcium 240 7-10 capsule by it y of mg capsule 00:00: mouth once [place] 00 daily as Medical needed for Branch Constipati on. ferrous 2020-0 Yes [id number] 325mg Take 1 Uni vers sulfate 325 7-10 tablet by ity of mg (65 mg 00:00: mouth 2 [place] iron) 00 (two) Medical tablet times Branch daily. ibuprofen 2020-0 Yes [id number] 600mg Take 1 U nivers 600 mg 7-10 tablet by ity of tablet 00:00: mouth [place] 00 every 6 Medical (six) Branch hours as needed (Pain). Take with food or milk. 2020-0 Yes [id number] 1{tbl} Take 1 U nivers vitamin 7-10 tablet by ity of w/FA tablet 00:00: mouth [place] 00 daily. Medical Branch docusate 2020-0 Yes [id number] 240mg Take 1 Un deirdre calcium 240 7-10 capsule by it y of mg capsule 00:00: mouth once [place] 00 daily as Medical needed for Branch Constipati on. ferrous 2020-0 Yes [id number] 325mg Take 1 Uni vers sulfate 325 7-10 tablet by ity of mg (65 mg 00:00: mouth 2 [place] iron) 00 (two) Medical tablet times Branch daily. ibuprofen 2020-0 Yes [id number] 600mg Take 1 U nivers 600 mg 7-10 tablet by ity of tablet 00:00: mouth [place] 00 every 6 Medical (six) Branch hours as needed (Pain). Take with food or milk. 2020-0 Yes [id number] 1{tbl} Take 1 U nivers vitamin 7-10 tablet by ity of w/FA tablet 00:00: mouth [place] 00 daily. Medical Branch docusate 2020-0 Yes [id number] 240mg Take 1 Un deirdre calcium 240 7-10 capsule by it y of mg capsule 00:00: mouth once [place] 00 daily as Medical needed for Branch Constipati on. ferrous 2020-0 Yes [id number] 325mg Take 1 Uni vers sulfate 325 7-10 tablet by ity of mg (65 mg 00:00: mouth 2 [place] iron) 00 (two) Medical tablet times Branch daily. ibuprofen 2020-0 Yes [id number] 600mg Take 1 U nivers 600 mg 7-10 tablet by ity of tablet 00:00: mouth [place] 00 every 6 Medical (six) Branch hours as needed (Pain). Take with food or milk. varicella 2020-0 Yes .5mL 0.5 mL, Unive rs virus 02-12 Subcutaneo ity of vaccine 12:36: , [place] live 28 ONCE-PRIOR Medical (VARIVAX TO Branch (PF)) DISCHARGE, injection 1 dose, 0.5 mL Starting Seema 02/13/20 at 0736, Until Discontinu ed, Routine, Give vaccine prior to discharge rho(D) 2020-0 Yes 300ug 300 mcg, Univer s immune 02-12 Intramuscu ity of globulin 10:41: lar, ONCE, [place] as (RHOGAM) 06 For 1 Medical syringe 300 dose, Branch mcg Conditiona l, Routine ondansetron 2019-0 Yes 4mg 4 mg, Slow Univers (ZOFRAN 02-12 IV Push, ity of (PF)) 10:41: Q8HPRN, [place] injection 4 02 Starting Medi angie mg Seema 02/13/20 Branch at 0541, Until Discontinu ed, Routine, Nausea and Vomiting (N/V) simethicone 2020-0 Yes 160mg 160 mg, Un deirdre (GAS RELIEF 02-12 Oral, ity of (SIMETHICON 10:41: PC+HSPRN, [place] E)) 02 Starting Medical chewable [place] 02/13/20 Branc h tablet 160 at 0541, mg Until Discontinu ed, Routine, Gas magnesium 2020-0 Yes 30mL 30 mL, Univer s hydroxide 02-12 Oral, ity of (MILK OF 10:41: QDAILYPRN, [place] MAGNESIA) 02 Starting Medica l 400 mg/5 mL Se[place] 02/13/20 Br anch suspension at 0541, 30 mL Until Discontinu ed, Routine, Constipati on ibuprofen 2020-0 Yes 600mg 600 mg, Univ ers (IBU) 02-12 Oral, ity of tablet 600 10:41: Q6HPRN, [place] mg 01 Starting Medical Seema 02/13/20 Branch at 0541, Until Discontinu ed, Routine, Pain (scale 4-6) acetaminoph 2020-0 Yes 650mg 650 mg, Un deirdre en 02-12 Oral, ity of (TYLENOL) 10:41: Q6HPRN, [place] tablet 650 01 Starting Medic al mg Seema 02/13/20 Branch at 0541, Until Discontinu ed, Routine, Pain (scale 1-3) diphenhydrA 2020-0 Yes 25mg 25 mg, Univ ers MINE 7 Oral, ity of (BENADRYL) 10:41: Q6HPRN, [place] tablet 25 01 Starting Medica l mg Seema 02/13/20 Branch at 0541, Until Discontinu ed, Routine, Sleep, Itching diphenhydrA 2020-0 Yes 25mg 25 mg, IV U nivers MINE-0.9 % 02-12 Piggyback, ity of sod.chlr 10:41: Administer [place] (BENADRYL) 01 over 30 Medica l 25 mg/50 mL Minutes, Bran ch piggyback Q6HPRN, 25 mg Starting Seema 02/13/20 at 0541, Until Discontinu ed, Routine, Itching docusate 2020-0 Yes 240mg 240 mg, Unive rs calcium 02-12 Oral, ity of (SURFAK) 10:41: QDAILYPRN, [place] capsule 240 01 Starting Medi angie mg [facility] 02/13/20 Branch at 0541, Until Discontinu ed, Routine, Constipati on benzocaine- 2020-0 Yes Topical, Un deirdre menthol 02-12 PRN, ity of (DERMOPLAST 10:41: Starting [place] ) 20-0.5 % 01 [place] 02/13/20 Med ical topical at 0541, Branch spray Until Discontinu ed, Routine, Perineum discomfort LR 1000 mL 2020-0 2020- No at 125 [facility] ers + oxytocin 02-12-09 mL/hr, IV ity of 20 units IV 08:45: 09:20 Infusion, [place] Solution 00 :00 ONCE, 1 Medical dose, [place] Branch 02/13/20 at 0345, Routine ondansetron 2020-0 2020- No 4mg 4 mg, Slow Univers (ZOFRAN 02-12 IV Push, ity of (PF)) 08:00: 06:56 ONCE, 1 [place] injection 4 00 :00 dose, Seema Med ical mg 02/13/20 at Branch 0300, Routine lactated 2020-0 2020- No 500mL at 999 [facility] rs ringers IV 7-09 07-09 mL/hr, 500 it y of infusion 01:30: 01:14 mL, IV [place] 500 mL 00 :00 Infusion, Medical ONCE, 1 Branch dose, 02/12/20 at 2030, Routine FENTanyl 2 2019-0 2020- No Intra-op Un deirdre mcg/mL + 02-12 ity of bupivacaine 01:27: 09:24 [place] 0.1% in NS 00 :47 Medical 250 mL Branch epidural bag FENTanyl 2 2019-0 2020- No Intra-op Un deirdre mcg/mL + 02-12 ity of bupivacaine 01:27: 09:24 [place] 0.1% in NS 00 :47 Medical 250 mL Branch epidural bag lidocaine-e 2019- 2020- No ONCE INTRA Univers pinephrine 02-12 PROCEDURE, it y of (XYLOCAINE 01:26: 09:24 [place] W/EPINEPHRI 00 :47 02/12/20 Me dical NE) 1.5 at 2025, Branch %-1:200,000 Until [place] injection 02/13/20 at 0424, Routine, Intra-op sodium 2019-0 2020- No 30mL 30 mL, Univers citrate-cit 02-12 Oral, ity of tiffani acid 00:29: 01:14 PRE-PROCED [place] (BICITRA) 15 :00 URE ONCE, Medic al 500-334 1 dose, Branch mg/5 mL Starting solution 30 Mon02/12/20 mL at 1929, Until 02/12/20 at 2014, Routine, Surgery/Pr ocedure butorphanol 2019- No 1mg 1 mg, IV U nivers (STADOL) 02-11 Push, ity of injection 1 19:00: 18:01 ONCE, 1 [place] mg 00 :00 dose, Wed Medical 02/12/20 at Branch 1400, Routine D5W-LR IV 2019-0 2020- No 1000mL at 125 Uni vers infusion 02-11 mL/hr, IV ity o f 1,000 mL 15:00: 10:41 Infusion, Rah[place] as 00 :07 CONTINUOUS Medical , Starting Branch 02/12/20 at 1000, Until Seema 02/13/20 at 0541, Routine lactated 2019-0 2020- No 500mL at 999 Unive rs ringers IV 02-11 mL/hr, 500 it y of infusion 14:44: 10:41 mL, IV [place] 500 mL 49 :07 Infusion, Medical PRN - SEE Branch INSTRUCTIO NS, Starting 02/12/20 at 0944, Until Seema 02/13/20 at 0541, Routine Miscellaneo 2020-0 Yes [id number] Use as [facility] [place] [facility] directed ity o f Supply 00:00: [place] (BLOOD 00 Medical PRESSURE Branch CUFF) Misc Miscellaneo 2020-0 Yes [id number] Use as [facility] [place] [facility] directed ity o f Supply 00:00: [place] (BLOOD 00 Medical PRESSURE Branch CUFF) Misc Miscellaneo 2020-0 Yes [id number] Use as [facility] [place] [facility] directed ity o f Supply 00:00: [place] (BLOOD 00 Medical PRESSURE Branch CUFF) Misc Miscellaneo 2020-0 Yes [id number] Use as [facility] [place] [facility] directed ity o f Supply 00:00: [place] (BLOOD 00 Medical PRESSURE Branch CUFF) Misc Miscellaneo 2020-0 Yes [id number] Use as [facility] [place] [facility] directed ity o f Supply 00:00: [place] (BLOOD 00 Medical PRESSURE Branch CUFF) Misc Miscellaneo 2020-0 Yes [id number] Use as [facility] [place] [facility] directed ity o f Supply 00:00: [place] (BLOOD 00 Medical PRESSURE Branch CUFF) Misc Miscellaneo 2020-0 Yes [id number] Use as [facility] [place] [facility] directed ity o f Supply 00:00: [place] (BLOOD 00 Medical PRESSURE Branch CUFF) Misc Miscellaneo 2020-0 Yes [id number] Use as [facility] [place] [facility] directed ity o f Supply 00:00: [place] (BLOOD 00 Medical PRESSURE Branch CUFF) Misc Miscellaneo 2020-0 Yes [id number] Use as [facility] [place] [facility] directed ity o f Supply 00:00: [place] (BLOOD 00 Medical PRESSURE Branch CUFF) Misc Miscellaneo 2020-0 Yes [id number] Use as [facility] [place] [facility] directed ity o f Supply 00:00: [place] (BLOOD 00 Medical PRESSURE Branch CUFF) Misc Miscellaneo 2020-0 2020- No [id number] Use as [facility] [place] [facility] 06 13- directed ity of Supply 00:00: 00:00 [place] (BLOOD 00 :00 Medical PRESSURE Branch CUFF) Misc PNV 67-iron 2020-0 Yes [id number] 1{capsu Take 1 Univers ps-folate 2-21 le} capsule by ity of no.1-dha 00:00: mouth [place] (VITAFOL 00 daily. Medical ULTRA) 29 Branch mg iron- 1 mg-200 mg Cap PNV 67-iron 2020-0 Yes [id number] 1{capsu Take 1 Univers ps-folate 2-21 le} capsule by ity of no.1-dha 00:00: mouth [place] (VITAFOL 00 daily. Medical ULTRA) 29 Branch mg iron- 1 mg-200 mg Cap PNV 67-iron 2020-0 Yes [id number] 1{capsu Take 1 Univers ps-folate 2-21 le} capsule by ity of no.1-dha 00:00: mouth [place] (VITAFOL 00 daily. Medical ULTRA) 29 Branch mg iron- 1 mg-200 mg Cap PNV 67-iron 2020-0 Yes [id number] 1{capsu Take 1 Univers ps-folate 2-21 le} capsule by ity of no.1-dha 00:00: mouth [place] (VITAFOL 00 daily. Medical ULTRA) 29 Branch mg iron- 1 mg-200 mg Cap PNV 67-iron 2020-0 Yes [id number] 1{capsu Take 1 Univers ps-folate 2-21 le} capsule by ity of no.1-dha 00:00: mouth [place] (VITAFOL 00 daily. Medical ULTRA) 29 Branch mg iron- 1 mg-200 mg Cap PNV 67-iron 2020-0 Yes [id number] 1{capsu Take 1 Univers ps-folate 2-21 le} capsule by ity of no.1-dha 00:00: mouth [place] (VITAFOL 00 daily. Medical ULTRA) 29 Branch mg iron- 1 mg-200 mg Cap PNV 67-iron 2020-0 Yes [id number] 1{capsu Take 1 Univers ps-folate 2-21 le} capsule by ity of no.1-dha 00:00: mouth [place] (VITAFOL 00 daily. Medical ULTRA) 29 Branch mg iron- 1 mg-200 mg Cap PNV 67-iron 2020-0 Yes [id number] 1{capsu Take 1 Univers ps-folate 2-21 le} capsule by ity of no.1-dha 00:00: mouth [place] (VITAFOL 00 daily. Medical ULTRA) 29 Branch mg iron- 1 mg-200 mg Cap PNV 67-iron 2020-0 Yes [id number] 1{capsu Take 1 Univers ps-folate 2-21 le} capsule by ity of no.1-dha 00:00: mouth [place] (VITAFOL 00 daily. Medical ULTRA) 29 Branch mg iron- 1 mg-200 mg Cap PNV 67-iron 2020-0 Yes [id number] 1{capsu Take 1 Univers ps-folate 2-21 le} capsule by ity of no.1-dha 00:00: mouth [place] (VITAFOL 00 daily. Medical ULTRA) 29 Branch mg iron- 1 mg-200 mg Cap PNV 67-iron 2020-0 Yes [id number] 1{capsu Take 1 Univers ps-folate 2-21 le} capsule by ity of no.1-dha 00:00: mouth [place] (VITAFOL 00 daily. Medical ULTRA) 29 Branch mg iron- 1 mg-200 mg Cap PNV 67-iron 2020-0 Yes [id number] 1{capsu Take 1 Univers ps-folate 2-21 le} capsule by ity of no.1-dha 00:00: mouth [place] (VITAFOL 00 daily. Medical ULTRA) 29 Branch mg iron- 1 mg-200 mg Cap PNV 67-iron 2020-0 Yes [id number] 1{capsu Take 1 Univers ps-folate 2-21 le} capsule by ity of no.1-dha 00:00: mouth [place] (VITAFOL 00 daily. Medical ULTRA) 29 Branch mg iron- 1 mg-200 mg Cap PNV 67-iron 2020-0 Yes [id number] 1{capsu Take 1 Univers ps-folate 2-21 le} capsule by ity of no.1-dha 00:00: mouth [place] (VITAFOL 00 daily. Medical ULTRA) 29 Branch mg iron- 1 mg-200 mg Cap PNV 67-iron 2020-0 Yes [id number] 1{capsu Take 1 Univers ps-folate 2-21 le} capsule by ity of no.1-dha 00:00: mouth [place] (VITAFOL 00 daily. Medical ULTRA) 29 Branch mg iron- 1 mg-200 mg Cap PNV 67-iron 2020-0 Yes [id number] 1{capsu Take 1 Univers ps-folate 2-21 le} capsule by ity of no.1-dha 00:00: mouth [place] (VITAFOL 00 daily. Medical ULTRA) 29 Branch mg iron- 1 mg-200 mg Cap PNV 67-iron 2020-0 Yes [id number] 1{capsu Take 1 Univers ps-folate 2-21 le} capsule by ity of no.1-dha 00:00: mouth [place] (VITAFOL 00 daily. Medical ULTRA) 29 Branch mg iron- 1 mg-200 mg Cap PNV 67-iron 2020-0 Yes [id number] 1{capsu Take 1 Univers ps-folate 2-21 le} capsule by ity of no.1-dha 00:00: mouth [place] (VITAFOL 00 daily. Medical ULTRA) 29 Branch mg iron- 1 mg-200 mg Cap PNV 67-iron 2020-0 Yes [id number] 1{capsu Take 1 Univers ps-folate 2-21 le} capsule by ity of no.1-dha 00:00: mouth [place] (VITAFOL 00 daily. Medical ULTRA) 29 Branch mg iron- 1 mg-200 mg Cap PNV 67-iron 2020-0 Yes [id number] 1{capsu Take 1 Univers ps-folate 2-21 le} capsule by ity of no.1-dha 00:00: mouth [place] (VITAFOL 00 daily. Medical ULTRA) 29 Branch mg iron- 1 mg-200 mg Cap PNV 67-iron 2020-0 Yes [id number] 1{capsu Take 1 Univers ps-folate 2-21 le} capsule by ity of no.1-dha 00:00: mouth [place] (VITAFOL 00 daily. Medical ULTRA) 29 Branch mg iron- 1 mg-200 mg Cap PNV 67-iron 2020-0 2020- No [id number] 1{capsu Take 1 Univers ps-folate 2-21 07-10 le} capsule by ity of no.1-dha 00:00: 00:00 mouth [place] (VITAFOL 00 :00 daily. Medical ULTRA) 29 Branch mg iron- 1 mg-200 mg Cap No known No [facility] ity [facility] No known No [facility] Immunizations Ordered Filled Immunization Date Status Comments [facility] e Immunization Name Name [facility] 2020-02-14 Completed [place] of 00:00:00 [facility] 2020-02-14 Completed University of 00:00:00 [facility] [place] [facility] MMR 2020-02-14 Completed University of 00:00:00 [place] [facility] MMR 2020-02-14 Completed University of 00:00:00 [place] [facility] MMR 2020-02-14 Completed University of 00:00:00 [place] [facility] MMR 2020-02-14 Completed University of 00:00:00 [facility] [place] [facility] MMR 2020-02-14 Completed University of 00:00:00 [place] [facility] MMR 2020-02-14 Completed University of 00:00:00 [place] [facility] MMR 2020-02-14 Completed University of 00:00:00 [place] [facility] MMR 2020-02-14 Completed University of 00:00:00 [place] [facility] MMR 2020-02-14 Completed University of 00:00:00 [place] [facility] MMR 2020-02-14 Completed University of 00:00:00 [facility] [place] [facility] Tdap 2019-12-03 Completed University of 00:00:00 [place] [facility] Tdap 2019-12-03 Completed University of 00:00:00 [place] [facility] Tdap 2019-12-03 Completed University of 00:00:00 [facility] [place] [facility] Tdap 2019-12-03 Completed University of 00:00:00 [facility] Tdap 2019-12-03 Completed University of 00:00:00 [place] [facility] Tdap 2019-12-03 Completed University of 00:00:00 [place] [facility] Tdap 2019-12-03 Completed University of 00:00:00 [place] [facility] Tdap 2019-12-03 Completed University of 00:00:00 [place] [facility] TDAP 2019-12-03 Completed University of 00:00:00 [place] [facility] TDAP 2019-12-03 Completed University of 00:00:00 [place] [facility] TDAP 2019-12-03 Completed University of 00:00:00 [facility] [place] [facility] TDAP 2019-12-03 Completed University of 00:00:00 [place] [facility] TDAP 2019-12-03 Completed University of 00:00:00 [place] [facility] TDAP 2019-12-03 Completed University of 00:00:00 [place] [facility] TDAP 2019-12-03 Completed University of 00:00:00 [place] [facility] TDAP 2019-12-03 Completed University of 00:00:00 [place] [facility] TDAP 2019-12-03 Completed University of 00:00:00 [place] [facility] TDAP 2019-12-03 Completed University of 00:00:00 [facility] TDAP 2019-12-03 Completed [facility] of 00:00:00 [place] [facility] [place] TDAP 2019-12-03 Completed University of 00:00:00 [place] [facility] TDAP 2019-12-03 Completed University of 00:00:00 [facility] [place] [facility] TDAP 2019-12-03 Completed [facility] of 00:00:00 [place] [facility] [place] TDAP 2019-12-03 Completed University of 00:00:00 [facility] TDAP 2019-12-03 Completed University of 00:00:00 [facility] TDAP 2019-12-03 Completed University of 00:00:00 [facility] Influenza Virus 2019-08-02 Completed Universit y of [facility] .5 mL 00:00:00 [place] [facility] IM 6+ MO Branch Influenza Virus 2019-08-02 Completed Universit y of [facility] .5 mL 00:00:00 [place] [facility] IM 6+ [facility] Influenza Virus 2019-08-02 Completed Universit y of [facility] .5 mL 00:00:00 [place] [facility] IM 6+ MO [facility] Influenza Virus 2019-08-02 Completed Universit y of [facility] .5 mL 00:00:00 [place] [facility] IM 6+ [facility] Influenza Virus 2019-08-02 Completed Universit y of [facility] .5 mL 00:00:00 [place] [facility] IM 6+ [facility] Influenza Virus 2019-08-02 Completed Universit y of [facility] .5 mL 00:00:00 [place] [facility] IM 6+ MO [facility] Influenza Virus 2019-08-02 Completed Universit y of [facility] .5 mL 00:00:00 [place] [facility] IM 6+ MO Branch Influenza Virus 2019-08-02 Completed Universit y of [facility] .5 mL 00:00:00 [place] [facility] IM 6+ MO Branch Influenza Virus 2019-08-02 Completed Universit y of [facility] .5 mL 00:00:00 [place] [facility] IM 6+ MO Branch Influenza Virus 2019-08-02 Completed Universit y of [facility] .5 mL 00:00:00 [place] [facility] IM 6+ MO Branch Influenza Virus 2019-08-02 Completed Universit y of [facility] .5 mL 00:00:00 [place] [facility] IM 6+ MO Branch Influenza Virus 2019-08-02 Completed Universit y of [facility] .5 mL 00:00:00 [place] [facility] IM 6+ MO Branch Influenza Virus 2019-08-02 Completed Universit y of [facility] .5 mL 00:00:00 [place] [facility] IM 6+ MO Branch Influenza Virus 2019-08-02 Completed Universit y of [facility] [facility] .5 mL 00:00:00 [place] [facility] IM 6+ MO Branch Influenza Virus 2019-08-02 Completed Universit y of [facility] [facility] .5 mL 00:00:00 [place] [facility] IM 6+ MO Branch Influenza Virus 2019-08-02 Completed Universit y of [facility] .5 mL 00:00:00 [place] [facility] IM 6+ MO Branch Influenza Virus 2019-08-02 Completed Universit y of [facility] [facility] .5 mL 00:00:00 [place] [facility] IM 6+ MO Branch Influenza Virus 2019-08-02 Completed Universit y of [facility] .5 mL 00:00:00 [place] [facility] IM 6+ MO Branch Influenza Virus 2019-08-02 Completed Universit y of [facility] .5 mL 00:00:00 [place] [facility] IM 6+ [facility] Influenza Virus 2019-08-02 Completed Universit y of [facility] [facility] .5 mL 00:00:00 [place] [facility] IM 6+ [facility] Influenza Virus 2019-08-02 Completed Universit y of [facility] [facility] .5 mL 00:00:00 [place] [facility] IM 6+ MO [facility] Influenza Virus 2019-08-02 Completed Universit y of [facility] .5 mL 00:00:00 [place] [facility] IM 6+ MO Branch Influenza Virus 2019-08-02 Completed Universit y of [facility] .5 mL 00:00:00 [place] [facility] 6+ [facility] Influenza Virus 2019-08-02 Completed Universit y of [facility] .5 mL 00:00:00 [place] [facility] IM 6+ MO Branch Influenza Virus 2019-08-02 Completed Universit y of [facility] [facility] .5 mL 00:00:00 [place] [facility] IM 6+ MO Branch Influenza Virus 2019-08-02 Completed Universit y of [facility] .5 mL 00:00:00 [place] [facility] IM 6+ MO Branch Influenza Virus 2019-08-02 Completed Universit y of [facility] .5 mL 00:00:00 [place] [facility] IM 6+ MO Branch Influenza Virus 2019-08-02 Completed Universit y of [facility] .5 mL 00:00:00 [place] [facility] IM 6+ MO Branch Influenza Virus 2019-08-02 Completed Universit y of [facility] .5 mL 00:00:00 [place] [facility] IM 6+ MO Branch Influenza Virus 2019-08-02 Completed Universit y of [facility] [facility] .5 mL 00:00:00 [place] [facility] IM 6+ MO Branch Influenza Virus 2019-08-02 Completed Universit y of [facility] [facility] .5 mL 00:00:00 [place] [facility] IM 6+ MO Branch Influenza Virus 2019-08-02 Completed Universit y of [facility] .5 mL 00:00:00 [place] [facility] IM 6+ MO Branch Influenza Virus 2019-08-02 Completed Universit y of [facility] .5 mL 00:00:00 [place] [facility] IM 6+ MO Branch Influenza Virus 2019-08-02 Completed Universit y of [facility] .5 mL 00:00:00 [place] [facility] IM 6+ MO Branch Influenza Virus 2019-08-02 Completed Universit y of [facility] .5 mL 00:00:00 [place] [facility] IM 6+ MO Branch Influenza Virus 2019-08-02 Completed Universit y of [facility] .5 mL 00:00:00 [place] [facility] IM 6+ MO [facility] Vital Signs Vital Name Observation Time Observation Value Comments Source Systolic blood 2021-06-16 16:23:00 103 mm[Hg] Univer sity of pressure [facility] Diastolic blood 2021-06-16 16:23:00 65 mm[Hg] Unive rsity of pressure [facility] Heart rate 2021-06-16 16:23:00 81 /min Universi ty [facility] Body temperature 2021-06-16 16:23:00 37.17 Dawna Univ ersity of [facility] Respiratory rate 2021-06-16 16:23:00 16 /min Univ ersity of [facility] Body height 2021-06-16 16:23:00 170.2 cm Universi ty [facility] Body weight 2021-06-16 16:23:00 48.535 kg Universi ty [facility] BMI 2021-06-16 16:23:00 16.76 kg/m2 Universi ty [facility] Systolic blood 2020-09-17 15:53:00 117 mm[Hg] Univer sity of pressure [facility] Diastolic blood 2020-09-17 15:53:00 72 mm[Hg] Unive rsity of pressure [facility] Heart rate 2020-09-17 15:53:00 86 /min Universi ty [facility] Body temperature 2020-09-17 15:53:00 36.44 Dawna Univ ersity of [facility] Respiratory rate 2020-09-17 15:53:00 18 /min Univ ersity of [facility] [place] [facility] Body height 2020-09-17 15:53:00 170.2 cm Universi ty of [place] [facility] Body weight 2020-09-17 15:53:00 65.681 kg Universi ty of [place] [facility] BMI 2020-09-17 15:53:00 22.68 kg/m2 Universi ty of [place] [facility] Systolic blood 2020-04-14 19:33:00 103 mm[Hg] Univer sity of pressure [facility] [place] [facility] Diastolic blood 2020-04-14 19:33:00 59 mm[Hg] Unive rsity of pressure [facility] [place] [facility] Heart rate 2020-04-14 19:33:00 70 /min Universi ty of [place] [facility] Body temperature 2020-04-14 19:33:00 37.06 Dawna Univ ersity of [place] [facility] Respiratory rate 2020-04-14 19:33:00 16 /min Univ ersity of [place] [facility] Body height 2020-04-14 19:33:00 170.2 cm Universi ty of [place] [facility] Body weight 2020-04-14 19:33:00 65.953 kg Universi ty of [place] [facility] BMI 2020-04-14 19:33:00 22.77 kg/m2 Universi ty of [place] [facility] Systolic blood 2020-03-30 14:10:00 89 mm[Hg] Univer sity of pressure [facility] [place] [facility] Diastolic blood 2020-03-30 14:10:00 63 mm[Hg] Unive rsity of pressure [facility] [place] [facility] Heart rate 2020-03-30 14:10:00 55 /min Universi ty of [place] [facility] Body temperature 2020-03-30 14:10:00 36.17 Dawna Univ ersity of [place] [facility] Respiratory rate 2020-03-30 14:10:00 16 /min Univ ersity of [facility] [place] [facility] Body height 2020-03-30 14:10:00 167.6 cm Universi ty of [place] [facility] Body weight 2020-03-30 14:10:00 67.132 kg Universi ty of [place] [facility] BMI 2020-03-30 14:10:00 23.89 kg/m2 Universi ty of [place] [facility] Systolic blood 2020-03-06 15:29:00 93 mm[Hg] Univer sity of pressure [facility] [place] [facility] Diastolic blood 2020-03-06 15:29:00 65 mm[Hg] Unive rsity of pressure [facility] Heart rate 2020-03-06 15:29:00 77 /min Universi ty of [facility] Body temperature 2020-03-06 15:29:00 36.61 Dawna Univ ersity of [facility] Respiratory rate 2020-03-06 15:29:00 16 /min Univ ersity of [facility] Body height 2020-03-06 15:29:00 167.6 cm Universi ty of [facility] Body weight 2020-03-06 15:29:00 67.302 kg Universi ty of [facility] BMI 2020-03-06 15:29:00 23.95 kg/m2 Universi ty of [facility] Systolic blood 2020-02-14 13:40:00 107 mm[Hg] Univer sity of pressure [facility] Diastolic blood 2020-02-14 13:40:00 76 mm[Hg] Unive rsity of pressure [facility] Heart rate 2020-02-14 13:40:00 81 /min Universi ty of [facility] Body temperature 2020-02-14 13:40:00 36 Dawna Univ ersity of [facility] Respiratory rate 2020-02-14 13:40:00 17 /min Univ ersity of [facility] Oxygen saturation in 2020-02-14 13:40:00 98 /min University of Arterial blood by [facility] Pulse oximetry [place] Body weight 2020-02-14 12:00:00 79.4 kg Universi ty of [facility] BMI 2020-02-14 12:00:00 28.25 kg/m2 Universi ty of [facility] Systolic blood 2020-02-06 15:15:00 111 mm[Hg] Univer sity of pressure [facility] Diastolic blood 2020-02-06 15:15:00 67 mm[Hg] Unive rsity of pressure [facility] Heart rate 2020-02-06 15:15:00 82 /min Universi ty of [facility] Body temperature 2020-02-06 15:15:00 37.33 Dawna Univ ersity of [facility] Respiratory rate 2020-02-06 15:15:00 16 /min Univ ersity of [facility] Body height 2020-02-06 15:15:00 167.6 cm Universi ty of [facility] Body weight 2020-02-06 15:15:00 79.408 kg Universi ty of [facility] [place] [facility] BMI 2020-02-06 15:15:00 28.26 kg/m2 Universi ty of [place] [facility] Systolic blood 2020-01-30 17:57:00 102 mm[Hg] Univer sity of pressure [facility] [place] [facility] Diastolic blood 2020-01-30 17:57:00 63 mm[Hg] Unive rsity of pressure [facility] [place] [facility] Heart rate 2020-01-30 17:57:00 113 /min Universi ty of [place] [facility] Body temperature 2020-01-30 17:57:00 36.94 Dawna Univ ersity of [place] [facility] Respiratory rate 2020-01-30 17:57:00 16 /min Univ ersity of [facility] Body height 2020-01-30 17:57:00 167.6 cm Universi ty of [place] [facility] Body weight 2020-01-30 17:57:00 78.529 kg Universi ty of [facility] BMI 2020-01-30 17:57:00 27.94 kg/m2 Universi ty of [place] [facility] Systolic blood 2020-01-23 16:08:00 116 mm[Hg] Univer sity of pressure [facility] [place] [facility] Diastolic blood 2020-01-23 16:08:00 67 mm[Hg] Unive rsity of pressure [facility] Heart rate 2020-01-23 16:08:00 93 /min Universi ty of [facility] Body temperature 2020-01-23 16:08:00 36.72 Dawna Univ ersity of [facility] Respiratory rate 2020-01-23 16:08:00 16 /min Univ ersity of [facility] Body height 2020-01-23 16:08:00 167.6 cm Universi ty of [facility] Body weight 2020-01-23 16:08:00 78.019 kg Universi ty of [place] [facility] BMI 2020-01-23 16:08:00 27.76 kg/m2 Universi ty of [place] [facility] Systolic blood 2020-01-16 17:56:00 119 mm[Hg] Univer sity of pressure [facility] [place] [facility] Diastolic blood 2020-01-16 17:56:00 64 mm[Hg] Unive rsity of pressure [facility] Heart rate 2020-01-16 17:56:00 69 /min Universi ty of [facility] Body temperature 2020-01-16 17:56:00 37 Dawna Univ ersity of [place] [facility] Respiratory rate 2020-01-16 17:56:00 16 /min Univ ersity of [place] [facility] Body height 2020-01-16 17:56:00 167.6 cm Universi ty of [facility] [place] [facility] Body weight 2020-01-16 17:56:00 77.225 kg Universi ty of [place] [facility] BMI 2020-01-16 17:56:00 27.48 kg/m2 Universi ty of [place] [facility] Systolic blood 2020-01-02 16:00:00 109 mm[Hg] Univer sity of pressure [facility] [place] [facility] Diastolic blood 2020-01-02 16:00:00 74 mm[Hg] Unive rsity of pressure [facility] [place] [facility] Heart rate 2020-01-02 16:00:00 98 /min Universi ty of [facility] Systolic blood 2019-12-03 15:44:00 104 mm[Hg] Univer sity of pressure [facility] Diastolic blood 2019-12-03 15:44:00 62 mm[Hg] Unive rsity of pressure [facility] Heart rate 2019-12-03 15:44:00 98 /min Universi ty of [place] [facility] Body temperature 2019-12-03 15:44:00 36.56 Dawna Univ ersity of [facility] Respiratory rate 2019-12-03 15:44:00 16 /min Univ ersity of [facility] Body height 2019-12-03 15:44:00 170.2 cm Universi ty of [facility] Body weight 2019-12-03 15:44:00 69.967 kg Universi ty of [facility] BMI 2019-12-03 15:44:00 24.16 kg/m2 Universi ty of [facility] Systolic blood 2019-11-19 14:29:00 110 mm[Hg] Univer sity of pressure [facility] Diastolic blood 2019-11-19 14:29:00 67 mm[Hg] Unive rsity of pressure [facility] Heart rate 2019-11-19 14:29:00 104 /min Universi ty of [facility] [place] [facility] Body temperature 2019-11-19 14:29:00 36.83 Dawna Univ ersity of [facility] [place] [facility] Respiratory rate 2019-11-19 14:29:00 16 /min Univ ersity of [facility] Body height 2019-11-19 14:29:00 167.6 cm Universi ty of [place] [facility] Body weight 2019-11-19 14:29:00 67.189 kg Universi ty of [facility] BMI 2019-11-19 14:29:00 23.91 kg/m2 Universi ty of [place] [facility] Systolic blood 2019-10-25 15:37:00 101 mm[Hg] Univer sity of pressure [facility] Diastolic blood 2019-10-25 15:37:00 65 mm[Hg] Unive rsity of pressure [facility] Heart rate 2019-10-25 15:37:00 79 /min Universi ty of [facility] [place] [facility] Body temperature 2019-10-25 15:37:00 36.11 Dawna Univ ersity of [place] [facility] Respiratory rate 2019-10-25 15:37:00 16 /min Univ ersity of [facility] [place] [facility] Body height 2019-10-25 15:37:00 170.2 cm Universi ty of [facility] [place] [facility] Body weight 2019-10-25 15:37:00 63.163 kg Universi ty of [place] [facility] BMI 2019-10-25 15:37:00 21.81 kg/m2 Universi ty of [place] [facility] Systolic blood 2019-09-27 16:41:00 98 mm[Hg] Univer sity of pressure [facility] [place] [facility] Diastolic blood 2019-09-27 16:41:00 57 mm[Hg] Unive rsity of pressure [facility] Heart rate 2019-09-27 16:41:00 97 /min Universi ty of [facility] [place] [facility] Body temperature 2019-09-27 16:41:00 36.83 Dawna Univ ersity of [facility] [place] [facility] Respiratory rate 2019-09-27 16:41:00 16 /min Univ ersity of [facility] [place] [facility] Body height 2019-09-27 16:41:00 170.2 cm Universi ty of [facility] [place] [facility] Body weight 2019-09-27 16:41:00 58.202 kg Universi ty of [facility] [place] [facility] BMI 2019-09-27 16:41:00 20.10 kg/m2 Universi ty of [place] [facility] Systolic blood 2019-08-30 16:45:00 93 mm[Hg] Univer sity of pressure [facility] Diastolic blood 2019-08-30 16:45:00 57 mm[Hg] Unive rsity of pressure [facility] Heart rate 2019-08-30 16:45:00 76 /min [facility] Body temperature 2019-08-30 16:45:00 36.28 Dawna [facility] Respiratory rate 2019-08-30 16:45:00 16 /min [facility] Body height 2019-08-30 16:45:[address] [facility] Body weight 2019-08-30 16:45:[address] [facility] BMI 2019-08-30 16:45:00 19.69 kg/m2 [facility] Procedures Procedure Date / Time Performing Clinician Source Performed POCT TEST 2021-06-16 16:22:00 Shelly Fay [facility] ASSIGNMENT OF BENEFITS 2020-09-17 15:36:21 Doctor Unassigned, No [facility] POCT TEST 2020-04-14 00:00:00 Shelly Fay [facility] POCT TEST 2020-03-30 14:19:00 Steph Rocha [facility] CBC WITH DIFFERENTIAL 2020-02-14 07:57:00 Anitha Dukes [facility] VENOUS CORD GAS 2020-02-13 08:26:00 [facility] CENTRAL NEURAXIAL BLOCK 2020-02-13 01:40:[address] [facility] CBC WITH DIFFERENTIAL 2020-02-12 15:07:00 Mike Chavarria [facility] [place] RUBELLA SCREEN IGG 2020-02-12 15:07:00 Bela Borges [facility] HEPATITIS B SURFACE 2020-02-12 15:07:00 Mike Chavarria [facility] HIV 1/2 AG-AB WITH 2020-02-12 15:07:00 Chris [facility] GALV ONLY - SYPHILIS 2020-02-12 15:07:[address] [facility] IGG/IGM [facility] HB ABO GROUPING 2020-02-12 14:51:00 Mike Chavarria [facility] RHO (D) IMMUNE GLOBULIN 2020-02-12 14:51:00 Anitha Dukes [facility] COVID-19 (ID NOW RAPID 2020-02-12 13:35:00 Cathy Bradford [facility] POCT URINALYSIS 2020-02-06 15:17:00 Shelly Fay [facility] [place] POCT URINALYSIS 2020-01-30 17:57:00 Shelly Fay [facility] [place] POCT URINALYSIS 2020-01-23 16:10:00 Shelly Fay [facility] [place] POCT URINALYSIS 2020-01-16 17:57:00 Shelly Fay [facility] [place] TDAP VACCINE, >11 YRS, 2019-12-03 15:59:31 Steph Rocha [facility] POCT URINALYSIS 2019-12-03 15:48:00 Shelly Fay [facility] [place] POCT URINALYSIS 2019-11-19 14:30:00 Shelly Fay [facility] [place] POCT URINALYSIS 2019-10-25 15:40:00 Shelly Fay [facility] [place] POCT URINALYSIS 2019-09-27 16:45:00 Shelly Fay [facility] [place] POCT URINALYSIS 2019-08-30 16:49:00 Shelly Fay [facility] [place] Encounters Start End Encounter Admission Attending Care Care Encounter Source Date/Time Date/Time Type Type Clinicians Facility Department ID 2021-06-04 Outpatient [facility] [id number] Univers 05:25:12 [facility] [place] 2021-06-16 2021-06-16 Outpatient R [facility] [id number] Univers 10:30:00 10:30:00 [id number] [facility] [place] 2021-06-16 2021-06-16 Outpatient R COLETTE [facility] [id number] Univers 10:30:00 10:23:28 EMIL sierra f [facility] 2021-06-16 2021-06-16 Nurse Visit, Ang-Rmchp Nurse [facility] [id number] Univers 10:00:46 10:23:28 Visit TrinidadEmil Brady [employer]UE [employer]ER [id number] [facility] [id number] Rahul as MATERNAL [id number] [facility] [address] 2021-03-25 2021-03-25 Outpatient R AKINSIPE, [facility] [id number] Univers 10:30:00 10:30:00 STEPH [id number] ity o [facility] 2021-03-25 2021-03-25 Outpatient R AKINSIPE, [facility] [id number] Univers 10:30:00 10:30:00 STEPH biswasy o [facility] 2020-09-17 2020-09-17 Office [facility] [id number] Univers 09:37:24 10:17:35 Visit Steph Silva 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 [id number] Rahul as MATERNAL [id number] [facility] & [address] 2020-09-17 2020-09-17 Outpatient R AKINSIPE, [facility] [id number] 9N-20 Univers 09:30:00 09:30:00 STEPH [id number] ity o [facility] 2020-09-17 2020-09-17 [facility] [id number] Univers 09:30:00 09:30:00 STEPH y o [facility] 2020-09-17 2020-09-17 Orders Doctor SIERRA 1.2.840.114 [id number] Univers 00:00:00 00:00:00 Only Unassigned, JAMES 350.1.13.10 ity of Britt [facility] 4.2.7.2.686 Rahul as [id number] [address] 2020-07-23 2020-07-23 Outpatient R [facility] [id number] -[id number] Univers 08:00:00 08:00:00 [id number] ity of [facility] 2020-07-23 2020-07-23 Outpatient R [facility] [id number] Univers 08:00:00 08:00:00 ity of [facility] 2020-07-23 2020-07-23 Outpatient R AKINLOIPE, [facility] [id number] Univers 08:00:00 08:00:00 STEPH miller o f [facility] 2020-07-07 2020-07-07 Outpatient R [facility] [id number] -[id number] Univers 10:00:00 10:00:00 ity of [facility] 2020-07-07 2020-07-07 Outpatient R [facility] [id number] Univers 10:00:00 10:00:00 ity [facility] 2020-04-14 2020-04-14 Nurse Visit, Henri-Rmchp Nurse [facility] 1.2 .840.114 [id number] Univers 13:59:53 14:46:33 Visit Rasheed Blanchard R 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 4.2.7.2.686 Rahul as MATERNAL [phone] Med ical & CHILD [address] [place] [address] 2020-04-14 2020-04-14 Outpatient R [facility] [id number] -[id number] Univers 14:00:00 14:00:00 [id number] ity [facility] 2020-04-14 2020-04-14 Outpatient R [facility] [id number] Univers 14:00:00 14:00:[facility] 2020-03-30 2020-03-30 Office Josefina, [facility] 1.2.246.384 [id number] Univers 08:39:21 09:46:44 Visit Steph Silva GLUE SPREADER 350.1.13.10 ity [facility] 4.2.7.2.686 Rahul as MATERNAL [phone] Med ical & CHILD [address] [place] [address] 2020-03-30 2020-03-30 Outpatient R JOSEFINA, [facility] [id number] 9N-20 Univers 08:30:00 08:30:00 STEPH [id number] paul o f [facility] 2020-03-30 2020-03-30 Outpatient R JOSEFINA, [facility] [id number] Univers 08:30:00 08:30:00 STEPH galvan [facility] 2020-03-27 2020-03-27 Outpatient R LO [facility] [id number] -[id number] Univers 09:30:00 09:30:00 RASHEED [id number] ity o mandy [facility] 2020-03-27 2020-03-27 Outpatient Shauna BLANCHARD [facility] [id number] Univers 09:30:00 09:30:00 RASHEED miller o mandy [facility] 2020-03-06 2020-03-06 [facility] 1.2.840.114 [id number] Univers 10:20:37 10:47:04 Rasheed R GLUE SPREADER 350.1.13.[address] [facility] 4.2.7.2.686 Rahul as MATERNAL [phone] Med ical & CHILD [address] [place] [address] 2020-03-06 2020-03-06 Outpatient Shauna BLANCHARD [facility] [id number] Univers 10:15:00 10:15:00 RASHEED miller o mandy [facility] 2020-02-12 2020-02-14 Hospital RIGO Rob 1.2.840.114 [id number] Univers 08:09:00 12:56:00 Encounter Abiola RAMIREZ 350.1.13.10 ity of [facility] 4.2.7.2.686 Rahul as [phone] [facility] [address] [place] 2020-02-12 2020-02-13 Anesthesia Eren Palma 1.2. 840.114 [id number] Univers 20:15:00 04:24:00 Analisa Keen 350.1.13.1 0 ity of HOSPITAL 4.2.7.2.686 Rahul as [phone] [facility] [address] 2020-02-12 2020-02-12 Telephone RIGO [place] 1.2.840.114 [id number] Univers 00:00:00 00:00:00 Cathy RAMIREZ 350.1.13.10 i ty of [facility] 4.2.7.2.686 Rahul as [phone] [facility] [address] [place] 2020-02-06 2020-02-06 [facility] 1.2.785.119 [id number] Univers 09:48:52 10:28:02 Shelly N GLUE SPREADER 350.1.13.10 i ty of Visit REGIONAL 4.2.7.2.686 Rahul as MATERNAL [phone] [facility] [address] [place] [address] 2020-02-06 2020-02-06 Outpatient Shauna FAY [facility] [id number] 9N-20 Univers 09:45:00 09:45:00 SHELLY [id number] [facility] 2020-02-06 2020-02-06 Outpatient Shauna FAY [facility] [id number] Univers 09:45:00 09:45:00 SHELLY [facility] 2020-01-30 2020-01-30 Routine Akinsipe, [facility] 1.2.501.199 [id number] Univers 12:46:33 13:13:00 Steph Silva GLUE SPREADER 350.1.13.10 ity of Visit REGIONAL 4.2.7.2.686 Rahul as MATERNAL [phone] [facility] & [address] 2020-01-30 2020-01-30 Outpatient AKINMARINA, [facility] [id number] 9N-20 Univers 12:45:00 12:45:00 STEPH [id number] itemily o [facility] 2020-01-30 2020-01-30 [facility] [id number] Univers 12:45:00 12:45:00 STEPH miller o [facility] 2020-01-23 2020-01-23 Routine Provider, [facility] 1 .2.840.114 [id number] Univers 10:57:25 11:23:09 Lacey Ames GLUE SPREADER 350.1.13.1 0 ity of Visit REGIONAL 4.2.7.2.686 Rahul as MATERNAL [phone] [facility] & CHILD [address] [place] [address] 2020-01-23 2020-01-23 Outpatient R [facility] [id number] -[id number] Univers 11:00:00 11:00:00 [id number] [facility] 2020-01-23 2020-01-23 Outpatient R HUI [facility] [id number] Univers 11:00:00 11:00:00 LACEY galvan [facility] 2020-01-16 2020-01-16 [facility] 1.2.195.092 [id number] Univers 12:45:19 13:19:04 Steph C GLUE SPREADER 350.1.13.10 ity of Visit REGIONAL 4.2.7.2.686 Rahul as MATERNAL [id number] [facility] ical & CHILD [address] [place] [address] 2020-01-16 2020-01-16 Outpatient R AKINSIPE, [facility] [id number] 9N-20 Univers 12:45:00 12:45:00 STEPH [id number] ity o [facility] 2020-01-16 2020-01-16 Outpatient R AKINSIPE, [facility] [id number] Univers 12:45:00 12:45:00 [facility] 2020-01-02 2020-01-16 [facility] 1.2.840.114 [id number] Univers 08:20:42 09:44:38 ne Visit Steph C GLUE SPREADER 350.1.13.10 ity of REGIONAL 4.2.7.2.686 Rahul as MATERNAL [id number] [facility] & CHILD [address] [place] [address] 2020-01-02 2020-01-02 Outpatient R AKINSIPE, [facility] [id number] 9N-20 Univers 11:00:00 11:00:00 STEPH [id number] ity o [facility] 2020-01-02 2020-01-02 Outpatient R AKINSIPE, [facility] [id number] Univers 11:00:00 11:00:00 [facility] 2019-12-16 2019-12-16 [facility] 1.2.840.114 [id number] Univers 12:50:22 14:34:30 ne Visit Steph C GLUE SPREADER 350.1.13.10 ity of REGIONAL 4.2.7.2.686 Rahul as MATERNAL [id number] [facility] & CHILD [address] [place] [address] 2019-12-16 2019-12-16 Outpatient R AKINSIPE, [facility] [id number] 9N-20 Univers 14:15:00 14:15:00 STEPH [id number] ity o [facility] 2019-12-16 2019-12-16 Outpatient R AKINSIPE, [facility] [id number] Univers 14:15:00 14:15:00 STEPH ity o [facility] 2019-12-11 2019-12-11 Caterer Helper Ultrasound, [facility] 1.2 .840.114 [id number] Univers 09:02:18 09:20:35 Visit Darrion Arteaga R GLUE SPREADER 350.1.13.10 ity of [place] REGIONAL 4.2.7.2.686 [place] MATERNAL [id number] [facility] [address] [place] [address] 2019-12-11 2019-12-11 Outpatient R [facility] [id number] -[id number] Univers 09:00:00 09:00:00 ity of [facility] 2019-12-11 2019-12-11 Outpatient P [facility] [id number] Univers 09:00:00 09:00:00 ity of [facility] 2019-12-11 2019-12-11 Abstract Lo [facility] 1.2.840.114 [id number] Univers 00:00:00 00:00:00 Rasheed R GLUE SPREADER 350.1.13.10 ity of REG[facility]AL 4.2.7.2.686 Rahul as MATERNAL [id number] [facility] & CHILD [address] [place] [address] 2019-12-03 2019-12-03 [facility], [facility] 1.2.144.081 [id number] Univers 10:33:08 11:24:51 Steph C GLUE SPREADER 350.1.13.10 ity of Visit REGIONAL 4.2.7.2.686 Rahul as MATERNAL [id number] [facility] & CHILD [address] [place] [address] 2019-12-03 2019-12-03 Outpatient R AKINSIPE, [facility] [id number] 9N-20 Univers 10:30:00 10:30:00 STEPH [id number] ity o f [facility] 2019-12-03 2019-12-03 Outpatient R AKINSIPE, [facility] [id number] Univers 10:30:00 10:30:00 STEPH biswasy o [facility] 2019-11-19 2019-11-19 [facility] 1.2.921.494 [id number] Univers 09:17:01 10:25:31 Steph Silva GLUE SPREADER 350.1.13.10 ity of Visit REGIONAL 4.2.7.2.686 Rahul as MATERNAL [id number] [facility] & [address] 2019-11-19 2019-11-19 [facility] [id number] 9N-20 Univers 09:15:00 09:15:00 STEPH [id number] zulayy o [facility] 2019-11-19 2019-11-19 [facility] [id number] Univers 09:15:00 09:15:00 STEPH milelr o [facility] 2019-11-18 2019-11-18 Telephone [facility] 1.2.840.114 [id number] Univers 00:00:00 00:00:00 Shelly Cano GLUE SPREADER 350.1.13.10 it y of REGIONAL 4.2.7.2.686 Rahul as MATERNAL [phone] [address] 2019-11-15 2019-11-15 [facility] [id number] 9N-20 Univers 10:15:00 10:15:00 SHELLY [id number] [facility] 2019-11-15 2019-11-15 [facility] [id number] Univers 10:00:00 10:00:00 STEPH sierra [facility] 2019-10-25 2019-10-25 [facility] 1.2.732.241 [id number] Univers 10:28:50 10:46:52 Shelly Cano GLUE SPREADER 350.1.13.10 i ty of Visit REGIONAL 4.2.7.2.686 Rahul as MATERNAL [id number] [facility] & [address] 2019-10-25 2019-10-25 [facility] [id number] Univers 10:30:00 10:30:00 SHELLY emily [facility] 2019-09-27 2019-09-27 [facility] 1.2.723.735 [id number] Univers 10:32:10 10:55:29 Shelly Jerome GLUE SPREADER 350.1.13.10 i ty of Visit REGIONAL 4.2.7.2.686 Rahul as MATERNAL [phone] Med ical & CHILD 107 [facility] 2019-09-25 2019-09-25 Caterer Helper Ultrasound, Ayleen [facility] 1.2 .840.114 [id number] Univers 10:57:18 11:57:18 Visit Scarlet Burch GLUE SPREADER 350.1.13.10 ity of REGIONAL 4.2.7.2.686 Rahul as MATERNAL [id number] Med ical & CHILD 369 [facility] 2019-08-30 2019-08-30 Routine Sumeet, [facility] 1.2.623.073 [id number] Univers 10:25:26 11:09:28 Shelly Jerome GLUE SPREADER 350.1.13.[address] i [address] Visit [facility] 4.2.7.2.686 Rahul as MATERNAL [phone] [facility] ical & CHILD 107 [facility] Results Test Description Test Time Test Comments Results Result Comments Source POCT TEST 2021-06-16 16:25:00 Test Item Value Reference Range Interpretation Comme nts POCT PREG (test code = 1605) Negative On board controls acceptable with C Yes Line (test code = 3574) POCT PREG LOT # (test code = 3575) POCT PREG TEST DATE (test code = 3576) KAUSHIK (test code = KAUSHIK) accurate development and interpretation of all internal controls [facility] [id number] 19:34:00 Test Item Value Reference Range Interpretation Comments POCT PREG (test code = 1605) Negative On board controls acceptable with C Yes Line (test code = 3574) POCT PREG LOT # (test code = 3575) POCT PREG TEST DATE (test code = 3576) [facility] [id number] 14:19:00 Test Item Value Reference Range Interpretation Comments POCT PREG (test code = 1605) Negative On board controls acceptable with C Yes Line (test code = 3574) POCT PREG LOT # (test code = 3575) POCT PREG TEST DATE (test code = 3576) [facility] [id number] 14:19:00 Test Item Value Reference Range Interpretation Comments POCT PREG (test code = 1605) Negative On board controls acceptable with C Yes Line (test code = 3574) POCT PREG LOT # (test code = 3575) POCT PREG TEST DATE (test code = 357) [facility] TexasCBC WITH [id number] 09:14:00 Test Item Value Reference Range Interpretation Comments WBC (test code = See_Comment H [Automated 6690-2) message] The system which generated this result transmit elaine reference range : 4.30 - 11.10 10*3/?L. The reference range was not used to interpret this result as normal/abnormal . RBC (test code = See_Comment L [Automated 789-8) message] The system which generated this result transmit elaine reference range : 3.93 - 5.25 10*6/?L. The reference range was not used to interpret this result as normal/abnormal . HGB (test code = 8.4 g/dL 11.6-15 L 718-7) HCT (test code = 27.4 % 35.7-45.2 L 4544-3) MCV (test code = 84.8 fL 80.6-95.5 787-2) MCH (test code = 26.0 pg 25.9-32.8 785-6) MCHC (test code = 30.7 g/dL 31.6-35.1 L 786-4) RDW-SD (test code = 40.1 fL 39-49.9 33519-0) RDW-CV (test code = 13.1 % 12-15.5 788-0) PLT (test code = See_Comment [Automated 777-3) message] The system which generated this result transmit elaine reference range : 166 - 358 10*3/ ?L. The reference range was not u sed to interpret th is result as normal/abnormal . MPV (test code = 11.4 fL 9.5-12.9 21885-1) NRBC/100 WBC (test See_Comment [Automat ed code = 2401113041) message] The system which generated this result transmit elaine reference range : 0.0 - 10.0 /100 WBCs. The reference range was not used to interpret this result as normal/abnormal . NRBC x10^3 (test code <0.01 See_Comment [Auto mated = 2655803894) message] The system which generated this result transmit elaine reference range : 10*3/?L. The reference range was not used to interpret this result as normal/abnormal . GRAN MAT (NEUT) % 65.3 % (test code = 770-8) IMM GRAN % (test code 0.40 % = 2724179049) LYMPH % (test code = 24.8 % 736-9) MONO % (test code = 8.1 % 5905-5) EOS % (test code = 1.1 % 713-8) BASO % (test code = 0.3 % 706-2) GRAN MAT x10^3(ANC) 10.38 10*3/uL 1.88-7.09 H (test code = 4428925821) IMM GRAN x10^3 (test 0.06 10*3/uL 0-0.06 code = 6905277525) LYMPH x10^3 (test code 3.94 10*3/uL 1.32-3.29 H = 731-0) MONO x10^3 (test code 1.29 10*3/uL 0.33-0.92 H = 742-7) EOS x10^3 (test code = 0.17 10*3/uL 0.03-0.39 711-2) BASO x10^3 (test code 0.04 10*3/uL 0.01-0.07 = 704-7) Lab Interpretation Abnormal (test code = 34535-9) [facility] TexasRubella Screen (MARY) [id number] 15:58:00 Test Item Value Reference Range Interpretation Comments Rubella screen IgG Negative Negative (test code = 4497043214) KAUSHIK (test code = KAUSHIK) Positive - Indicates the patient was exposed to Rubella through infection or vaccination.Negative - Indicates the patient could be susceptible to Rubella infection.Equivocal - A second specimen should be sent. [facility] TexasGALV ONLY - SYPHILIS [id number] 14:12:00 Test Item Value Reference Range Interpretation Comments Syphilis IgG/IgM (test Non-reactive Non-reactive code = 48494-6) KAUSHIK (test code = KAUSHIK) Non-reactive - No serologic evidence of T. pallidum infection. Cannot exclude incubating or early syphilis. Submit a second specimen in 2-4 weeks if syphilis is clinically suspected. Equivocal - Further testing to follow. Reactive - Further testing to follow. Lab Interpretation (test Normal code = 01636-3) [facility] TexasRUBELLA SCREEN [id number] 14:12:00 Test Item Value Reference Range Interpretation Comments Rubella screen IgG Negative Negative (test code = 0855860446) KAUSHIK (test code = KAUSHIK) Positive - Indicates the patient was exposed to Rubella through infection or vaccination.Negative - Indicates the patient could be susceptible to Rubella infection.Equivocal - A second specimen should be sent. [facility] TexasRHO (D) IMMUNE [id number] 10:42:55 Test Item Value Reference Range Interpretation Comments RHIG CANDIDATE? No- see comment Patient i s not a (test code = candidate for R hIg- 5055) Patient is Rh Positive.Perfor med at [facility] Laboratory Services - [facility] Blood [address] [place] [address] 45083Ompw Free: [phone] A No. [id number] [facility] TexasVENOUS CORD [id number] 08:41:00 Test Item Value Reference Range Interpretation Comments VENOUS BASE EXCESS, mEq/L CORD (test code = 0807882901) VENOUS PH, CORD (test 7.25-7.45 code = 0681417268) VENOUS PC02, CORD See_Comment [Automate d message] The (test code = system which ge nerated 6157380824) this result tra nsmitted reference range : 27 - 49 mmHg. The refer ence range was not used to interpret this result as normal/abnormal . VENOUS PO2, CORD (test See_Comment [Aut omated message] The code = 8013802209) system wh [facility] generated this result tra nsmitted reference range : 17 - 41 mmHg. The refer ence range was not used to interpret this result as normal/abnormal . VENOUS BICARBONATE, See_Comment QUES [Au tomated message] CORD (test code = The system which generated 1078150963) this result tra nsmitted reference range : 12 - 29 mEq/L. The refe rence range was not used to interpret this result as normal/abnormal . [facility] TexasARTERIAL CORD [id number] 08:40:00 Test Item Value Reference Range Interpretation Comments BASE EXCESS, CORD mEq/L QUES (test code = 1998742958) AC PH, CORD (BEAKER) 7.18-7.38 (test code = 5438240614) PC02, CORD (test code See_Comment [Auto mated message] The = 9014119750) system which g enerated this result transmit elaine reference range : 32 - 66 mmHg. The refer ence range was not used to interpret this result as normal/abnormal . PO2, CORD (test code See_Comment [Autom ated message] The = 3225450994) system which g enerated this result transmit elaine reference range : 10 - 30 mmHg. The refer ence range was not used to interpret this result as normal/abnormal . BICARBONATE, CORD See_Comment [Automate d message] The (test code = system which ge nerated this 1555137113) result transmit elaine reference range : 17 - 27 mEq/L. The refe rence range was not used to interpret this result as normal/abnormal . [facility] Neuraxial [id number] 01:40:21 Eren Palma DO ? ? 02/12/2020 ?8:41 PM Central Neuraxial Block Performed by: Eren Palma DOAuthorized by: Analisa Keen MD Start Time: ?02/12/2020 8:15 PMEnd Time: ?02/12/2020 8:26 PMReason for Block: ?OB request and Labor analgesiaStaff: ?Anesthesiologist: ?Analisa Keen MD ?Resident/WHARF TENDER: ?Eren Palma DO ?Performed by: ?Resident/WHARF TENDER patient identified, IV checked, risks and benefits explained, monitors and equipment checked, timeout performed, ob surgical consent/approval, pre-op evaluation, surgical consent, site marked and anesthesia consentEpidural: ?Patient Position: ?Sitting ?Prep: Betadine ? ?Monitoring: ?Heart rate, vehicle monitor technician / EKG, continuous pulse ox, NIBP and heart rate / toco ?Location: ?Lumbar (1-5) ?Lumbar: ?L4-L5 ?Approach: ?MidlineInjection Technique: ?KENDY salineNeedle and Epidural Catheter: ?Epidural Kit: ?BBraun ?Needle Type: ?Tuohy ?Needle Length: ?3.5 in (8.89 cm) ?Needle Insertion Depth: ?6Catheter Type: ?MultiportCatheterSize: ?19 GCatheter at Skin Depth: ?12Test Dose: ?Lidocaine 1.5% with epinephrine 1-to-200,000 and negativeAssessment: ?Sensory Level: ?Above X98Pmtql: ? Patient identified; pre-procedure verification.Patient prepped and draped in standard sterile fashion using betadine x 3Subcutaneous infiltration with 1% Lidocaine KENDY at 6 cm; catheter secured at 12 cm with mastisol, tegaderm x2 and 3-inch clear tape.Aspiration test negative x 3Test dose negativePatient tolerated procedure well with no immediatecomplications Epidural expectations; PCEA explained and fall precautions given. [facility] TexasHIV 1/2 AG-AB WITH [id number] 21:15:00 Test Item Value Reference Range Interpretation Comments HIV Negative Negative Semi-quantitative (test code = 87901-7) KAUSHIK (test code = Non-reactive for HIV-1 KAUSHIK) antigen and HIV-1/HIV-2 antibodies. ?No laboratory evidence of HIV infection. ?Repeat in 2-4 weeks if acute HIV infection is suspected. [facility] TexasHepatitis B Surface [id number] 16:57:00 Test Item Value Reference Range Interpretation Comments HBsAg Semi-Quantitative (test code = Negative Negative 5195-3) [facility] TexasType and Screen - ONCE [id number] 16:08:16 Test Item Value Reference Range Interpretation Comments ABO & RH (test code O POSITIVE Performe d at ID[facility] = 20) Laboratory [facility] Blood Bank3 [address] [place] [address]Xiuc Free: [phone] A No. [id number] IAT (test code = Negative Performed a t [facility] 1185) Laboratory [facility] Blood [address]Neel carrero [address]Rvsc Free: [phone] A No. [id number] [facility] WITH [id number] 16:00:00 Test Item Value Reference Range Interpretation Comments WBC (test code = See_Comment H [Automated 6690-2) message] The sy stem which generated this result transmitted reference range : 4.30 - 11.10 10*3/?L. The reference range was not used to interpret this result as normal/abnormal . RBC (test code = See_Comment L [Automated 789-8) message] The sy stem which generated this result transmitted reference range : 3.93 - 5.25 10*6/?L. The reference range was not used to interpret this result as normal/abnormal . HGB (test code = 10.2 g/dL 11.6-15 L 718-7) HCT (test code = 32.9 % 35.7-45.2 L 4544-3) MCV (test code = 84.6 fL 80.6-95.5 787-2) MCH (test code = 26.2 pg 25.9-32.8 785-6) MCHC (test code = 31.0 g/dL 31.6-35.1 L 786-4) RDW-SD (test code = 39.3 fL 39-49.9 78865-6) RDW-CV (test code = 13.1 % 12-15.5 788-0) PLT (test code = See_Comment [Automated 777-3) message] The sy stem which generated this result transmitted reference range : 166 - 358 10*3/ ?L. The reference r nate was not used to interpret this result as normal/abnormal . MPV (test code = 11.3 fL 9.5-12.9 45724-3) NRBC/100 WBC (test See_Comment [Automat ed code = 5183997977) message] The system which generated this result transmitted reference range : 0.0 - 10.0 /100 WBCs. The refer ence range was not u sed to interpret th is result as normal/abnormal . NRBC x10^3 (test code <0.01 See_Comment [Auto mated = 2960803673) message] The s ystem which generated this result transmitted reference range : 10*3/?L. The reference range was not used to interpret this result as normal/abnormal . GRAN MAT (NEUT) % 68.6 % (test code = 770-8) IMM GRAN % (test code 0.40 % = 8444921820) LYMPH % (test code = 21.3 % 736-9) MONO % (test code = 8.3 % 5905-5) EOS % (test code = 1.2 % 713-8) BASO % (test code = 0.2 % 706-2) GRAN MAT x10^3(ANC) 7.65 10*3/uL 1.88-7.09 H (test code = 1398687086) IMM GRAN x10^3 (test 0.04 10*3/uL 0-0.06 code = 1953101582) LYMPH x10^3 (test code 2.38 10*3/uL 1.32-3.29 = 731-0) MONO x10^3 (test code 0.93 10*3/uL 0.33-0.92 H = 742-7) EOS x10^3 (test code = 0.13 10*3/uL 0.03-0.39 711-2) BASO x10^3 (test code <0.03 0.01-0.07 = 704-7) Lab Interpretation Abnormal (test code = 85181-8) [facility] TexasCOVID-19 (ID NOW RAPID TESTING)2020-02-12 14:04:00 Test Item Value Reference Range Interpretation Comments SARS-CoV-2 Rapid ID NOW Not Detected Not Detected (test code = 16645-1) KAUSHIK (test code = KAUSHIK) ID NOW COVID-19 Assay is an isothermal nucleic acid amplification test intended for the qualitative detection of nucleic acid from SARS-CoV-2 viral RNA in nasopharyngeal (COMPLIANCE DIRECTOR) specimens. It is used under Emergency Use Authorization (EUA) by FDA. The limit of detection (LOD) of the assay is 125 Genome Equivalents/mL. A positive result is indicative of the presence of SARS-CoV-2 RNA. ?Clinical correlation with patient history and other diagnostic information is necessary to determine patient infection status. A negative (Not Detected) result does not preclude SARS-CoV-2 infection. In patients with clinical symptoms and other tests that are consistent with SARS-CoV-2 infection, negative results should be treated as presumptive negative and a new specimen should be tested with alternative PCR molecular test. Invalid: Please collect a new specimen for repeat patient testing if clinically indicated. Lab Interpretation Normal (test code = 99809-6) [facility] URINALYSIS W SPECIFIC [id number] 15:18:00 Test Item Value Reference Range Interpretation Comments POCT U SP GRAV (test code = . 1.005-1.025 3255) POCT PH U (test code = 3254) . 5-8 POCT U LEUK EST (test code = . Negative - Negative 3263) POCT U NIT (test code = 3262) . Negative - Negative POCT U PROT (test code = 3259) trace Negative - Negative POCT U GLU (test code = 3256) neg Negative - Negative POCT U KETONE (test code = 3258) . Negative - Negative POCT U UROBILI (test code = . 0.2-1 3260) POCT U BILI (test code = 3261) . Negative - Negative POCT U BLD (test code = 3257) . Negative - Negative POCT U COLOR (test code = 3266) POCT U APPEAR (test code = 3267) Lab Interpretation (test code = Abnormal 76352-2) [facility] URINALYSIS W SPECIFIC [id number] 17:57:00 Test Item Value Reference Range Interpretation Comments POCT U SP GRAV (test code = 3255) . 1.005-1.025 POCT PH U (test code = 3254) . 5-8 POCT U LEUK EST (test code = 3263) . Negative - Negative POCT U NIT (test code = 3262) . Negative - Negative POCT U PROT (test code = 3259) Trace Negative - Negative POCT U GLU (test code = 3256) Neg Negative - Negative POCT U KETONE (test code = 3258) . Negative - Negative POCT U UROBILI (test code = 3260) . 0.2-1 POCT U BILI (test code = 3261) . Negative - Negative POCT U BLD (test code = 3257) . Negative - Negative POCT U COLOR (test code = 3266) POCT U APPEAR (test code = 3267) [facility] URINALYSIS W SPECIFIC [id number] 16:10:00 Test Item Value Reference Range Interpretation Comments POCT U SP GRAV (test code = 3255) . 1.005-1.025 POCT PH U (test code = 3254) . 5-8 POCT U LEUK EST (test code = 3263) . Negative - Negative POCT U NIT (test code = 3262) . Negative - Negative POCT U PROT (test code = 3259) Trace Negative - Negative POCT U GLU (test code = 3256) Neg Negative - Negative POCT U KETONE (test code = 3258) . Negative - Negative POCT U UROBILI (test code = 3260) . 0.2-1 POCT U BILI (test code = 3261) . Negative - Negative POCT U BLD (test code = 3257) . Negative - Negative POCT U COLOR (test code = 3266) POCT U APPEAR (test code = 3267) [facility] URINALYSIS W SPECIFIC [id number] 17:58:00 Test Item Value Reference Range Interpretation Comments POCT U SP GRAV (test code = . 1.005-1.025 3255) POCT PH U (test code = 3254) . 5-8 POCT U LEUK EST (test code = . Negative - Negative 3263) POCT U NIT (test code = 3262) . Negative - Negative POCT U PROT (test code = 3259) trace Negative - Negative POCT U GLU (test code = 3256) negative Negative - Negative POCT U KETONE (test code = 3258) . Negative - Negative POCT U UROBILI (test code = . 0.2-1 3260) POCT U BILI (test code = 3261) . Negative - Negative POCT U BLD (test code = 3257) . Negative - Negative POCT U COLOR (test code = 3266) POCT U APPEAR (test code = 3267) [facility] URINALYSIS W SPECIFIC [id number] 15:50:00 Test Item Value Reference Range Interpretation Comments POCT U SP GRAV (test code = 3255) . 1.005-1.025 POCT PH U (test code = 3254) . 5-8 POCT U LEUK EST (test code = 3263) . Negative - Negative POCT U NIT (test code = 3262) . Negative - Negative POCT U PROT (test code = 3259) Trace Negative - Negative POCT U GLU (test code = 3256) Neg Negative - Negative POCT U KETONE (test code = 3258) . Negative - Negative POCT U UROBILI (test code = 3260) . 0.2-1 POCT U BILI (test code = 3261) . Negative - Negative POCT U BLD (test code = 3257) . Negative - Negative POCT U COLOR (test code = 3266) POCT U APPEAR (test code = 3267) [facility] URINALYSIS W SPECIFIC [id number] 14:31:00 Test Item Value Reference Range Interpretation Comments POCT U SP GRAV (test code = . 1.005-1.025 3255) POCT PH U (test code = 3254) . 5-8 POCT U LEUK EST (test code = . Negative - Negative 3263) POCT U NIT (test code = 3262) . Negative - Negative POCT U PROT (test code = 3259) trace Negative - Negative POCT U GLU (test code = 3256) neg Negative - Negative POCT U KETONE (test code = 3258) . Negative - Negative POCT U UROBILI (test code = . 0.2-1 3260) POCT U BILI (test code = 3261) . Negative - Negative POCT U BLD (test code = 3257) . Negative - Negative POCT U COLOR (test code = 3266) POCT U APPEAR (test code = 3267) Lab Interpretation (test code = Abnormal 63461-5) [facility] URINALYSIS W SPECIFIC [id number] 14:31:00 Test Item Value Reference Range Interpretation Comments POCT U SP GRAV (test code = . 1.005-1.025 3255) POCT PH U (test code = 3254) . 5-8 POCT U LEUK EST (test code = . Negative - Negative 3263) POCT U NIT (test code = 3262) . Negative - Negative POCT U PROT (test code = 3259) trace Negative - Negative POCT U GLU (test code = 3256) neg Negative - Negative POCT U KETONE (test code = 3258) . Negative - Negative POCT U UROBILI (test code = . 0.2-1 3260) POCT U BILI (test code = 3261) . Negative - Negative POCT U BLD (test code = 3257) . Negative - Negative POCT U COLOR (test code = 3266) POCT U APPEAR (test code = 3267) Lab Interpretation (test code = Abnormal 87108-7) [facility] URINALYSIS W SPECIFIC [id number] 14:31:00 Test Item Value Reference Range Interpretation Comments POCT U SP GRAV (test code = . 1.005-1.025 3255) POCT PH U (test code = 3254) . 5-8 POCT U LEUK EST (test code = . Negative - Negative 3263) POCT U NIT (test code = 3262) . Negative - Negative POCT U PROT (test code = 3259) trace Negative - Negative POCT U GLU (test code = 3256) neg Negative - Negative POCT U KETONE (test code = 3258) . Negative - Negative POCT U UROBILI (test code = . 0.2-1 3260) POCT U BILI (test code = 3261) . Negative - Negative POCT U BLD (test code = 3257) . Negative - Negative POCT U COLOR (test code = 3266) POCT U APPEAR (test code = 3267) Lab Interpretation (test code = Abnormal 47245-2) [facility] URINALYSIS W SPECIFIC [id number] 14:31:00 Test Item Value Reference Range Interpretation Comments POCT U SP GRAV (test code = . 1.005-1.025 3255) POCT PH U (test code = 3254) . 5-8 POCT U LEUK EST (test code = . Negative - Negative 3263) POCT U NIT (test code = 3262) . Negative - Negative POCT U PROT (test code = 3259) trace Negative - Negative POCT U GLU (test code = 3256) neg Negative - Negative POCT U KETONE (test code = 3258) . Negative - Negative POCT U UROBILI (test code = . 0.2-1 3260) POCT U BILI (test code = 3261) . Negative - Negative POCT U BLD (test code = 3257) . Negative - Negative POCT U COLOR (test code = 3266) POCT U APPEAR (test code = 3267) Lab Interpretation (test code = Abnormal 79269-8) [facility] URINALYSIS W SPECIFIC [id number] 14:31:00 Test Item Value Reference Range Interpretation Comments POCT U SP GRAV (test code = . 1.005-1.025 3255) POCT PH U (test code = 3254) . 5-8 POCT U LEUK EST (test code = . Negative - Negative 3263) POCT U NIT (test code = 3262) . Negative - Negative POCT U PROT (test code = 3259) trace Negative - Negative POCT U GLU (test code = 3256) neg Negative - Negative POCT U KETONE (test code = 3258) . Negative - Negative POCT U UROBILI (test code = . 0.2-1 3260) POCT U BILI (test code = 3261) . Negative - Negative POCT U BLD (test code = 3257) . Negative - Negative POCT U COLOR (test code = 3266) POCT U APPEAR (test code = 3267) Lab Interpretation (test code = Abnormal 94304-2) [facility] URINALYSIS W SPECIFIC [id number] 15:40:00 Test Item Value Reference Range Interpretation Comments POCT U SP GRAV (test code = . 1.005-1.025 3255) POCT PH U (test code = 3254) . 5-8 POCT U LEUK EST (test code = . Negative - Negative 3263) POCT U NIT (test code = 3262) . Negative - Negative POCT U PROT (test code = 3259) trace Negative - Negative POCT U GLU (test code = 3256) negative Negative - Negative POCT U KETONE (test code = 3258) . Negative - Negative POCT U UROBILI (test code = . 0.2-1 3260) POCT U BILI (test code = 3261) . Negative - Negative POCT U BLD (test code = 3257) . Negative - Negative POCT U COLOR (test code = 3266) POCT U APPEAR (test code = 3267) [facility] URINALYSIS W SPECIFIC [id number] 16:45:00 Test Item Value Reference Range Interpretation Comments POCT U SP GRAV (test code = . 1.005-1.025 3255) POCT PH U (test code = 3254) . 5-8 POCT U LEUK EST (test code = . Negative - Negative 3263) POCT U NIT (test code = 3262) . Negative - Negative POCT U PROT (test code = 3259) trace Negative - Negative POCT U GLU (test code = 3256) negative Negative - Negative POCT U KETONE (test code = 3258) . Negative - Negative POCT U UROBILI (test code = . 0.2-1 3260) POCT U BILI (test code = 3261) . Negative - Negative POCT U BLD (test code = 3257) . Negative - Negative POCT U COLOR (test code = 3266) POCT U APPEAR (test code = 3267) [facility] URINALYSIS W SPECIFIC [id number] 16:49:00 Test Item Value Reference Range Interpretation Comments POCT U SP GRAV (test code = 3255) . 1.005-1.025 POCT PH U (test code = 3254) . 5-8 POCT U LEUK EST (test code = 3263) . Negative - Negative POCT U NIT (test code = 3262) . Negative - Negative POCT U PROT (test code = 3259) Trace Negative - Negative POCT U GLU (test code = 3256) Neg Negative - Negative POCT U KETONE (test code = 3258) . Negative - Negative POCT U UROBILI (test code = 3260) . 0.2-1 POCT U BILI (test code = 3261) . Negative - Negative POCT U BLD (test code = 3257) . Negative - Negative POCT U COLOR (test code = 3266) POCT U APPEAR (test code = 3267) [facility] URINALYSIS W SPECIFIC [id number] 16:49:00 Test Item Value Reference Range Interpretation Comments POCT U SP GRAV (test code = 3255) . 1.005-1.025 POCT PH U (test code = 3254) . 5-8 POCT U LEUK EST (test code = 3263) . Negative - Negative POCT U NIT (test code = 3262) . Negative - Negative POCT U PROT (test code = 3259) Trace Negative - Negative POCT U GLU (test code = 3256) Neg Negative - Negative POCT U KETONE (test code = 3258) . Negative - Negative POCT U UROBILI (test code = 3260) . 0.2-1 POCT U BILI (test code = 3261) . Negative - Negative POCT U BLD (test code = 3257) . Negative - Negative POCT U COLOR (test code = 3266) POCT U APPEAR (test code = 3267) [facility]
[2021-12-19 05:44] LABS: Absolute Lymphocytes (CBC) 1.7 K/uL (0.7-4.9); Hematocrit 34.5 % (36.0-45.0); Lymphocytes % 9.6 % (15.3-44.8); MPV 7.7 fL (7.6-11.3); RBC Red Blood Cell Count 4.14 M/uL (3.86-4.86)
[2021-12-19 06:16] LABS: Urine Bacteria >50 /HPF (<20); Urine RBC <5 /HPF (NONE SEEN)
[2021-12-19 06:17] LABS: Albumin 3.6 g/dL (3.4-5.0); Bilirubin Total 0.5 mg/dL (0.2-1.0); Potassium 3.8 mmol/L (3.5-5.1); Protein, Total 7.2 g/dL (6.4-8.2); Urine Mucus 3+ /HPF (NONE SEEN)
[2021-12-19 07:01] LABS: Blood Morphology Comment NOT SEEN (NOT SEEN); Platelet Estimate ADEQ
[2021-12-19 07:46] LABS: Urine Blood Negative (Negative); Urine Glucose Negative (Negative); Urine Protein 1+ (Negative); Urine Specific Gravity >=1.030 (1.005-1.030)
--- NOTE | 2021-12-19 08:28 | RAD REPORT ---
EXAM DESCRIPTION: US - OB Limited - 12/19/2021 7:10 am CLINICAL HISTORY: with pelvic pain COMPARISON: None FINDINGS: The uterus measures 10 x 5 x 7 centimeters 3 centimeter gestational sac within the endometrium. pole with a crown-rump length 1.4 centimet ers is present. Cardiac activity 145 beats per minute 3.6 centimeter complex right ovarian cystic mass. 3.1 centimeter heterogeneous mass left ovary containing echoes. 2 centimeter left ovarian cyst. Right and left adnexa are unremarkable. No significant free fluid IMPRESSION: Single live intrauterine with an estimated gestational age 7 weeks 5 days GAMALIEL 08/02/2022 3.6 centimeter complex right ovarian cystic mass most likely benign complex ovarian cyst. Ovarian cys tic neoplasm can have this appearance but is considered less likely. 3.1 centimeter heterogeneous mass left ovary probably hemorrhagic ovarian cyst. It is recommended that the patient have an ultrasound in a couple of months to assess stability/resol ution of the ovarian masses
--- NOTE | 2021-12-19 08:56 | ER ---
Nurse's Notes [facility] Name: Venecia Aguilar Age: 31 yrs Sex: Female : 1990 Arrival Date: 12/19/2021 Time: 05:10 Bed 19 Private MD: Diagnosis: 8 weeks gestation of -UTI, ovarian cyst Presentation: 12/19 05:46 Chief complaint: Patient states: The pt was recv'd via EMS with the complaint of nicole suprapubic pain and having missed a period last month. Her Hcg was + on POC test and labs were sent. All orders completed. The pt has been sleeping and is in NAD. Coronavirus screen: Vaccine status: Patient reports being unvaccinated. Ebola Screen: Patient negative for fever greater than or equal to 101.5 degrees Fahrenheit, and additional compatible Ebola Virus Disease symptoms Patient denies exposure to infectious person. Patient denies travel to an Ebola-affected area in the 21 days before illness onset. Initial Sepsis Screen: Does the patient meet any 2 criteria? No. Patient's initial sepsis screen is negative. Does the patient have a suspected source of infection? No. Patient's initial sepsis screen is negative. Risk Assessment: Do you want to hurt yourself or someone else? Patient reports no desire to harm self or others. Onset of symptoms was December 19, 2021 at 03:00. 05:46 Method Of Arrival: EMS nicole 05:46 Acuity: ANSHUL 4 nicole Triage Assessment: 05:51 General: Appears in no apparent distress. Pain: Complains of pain in pelvis. nicole 05:55 General: Behavior is calm, cooperative. 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 - Social history:: Smoking status: Patient denies any tobacco usage or history of. Screenin:54 Abuse screen: Denies threats or abuse. Denies injuries from another. Nutritional nicole screening: No deficits noted. Tuberculosis screening: No symptoms or risk factors identified. Fall Risk None identified. Assessment: 05:53 Reassessment: Patient appears in no apparent distress at this time. No changes from nicole previously documented assessment. 06:47 Reassessment: US is at bedside to perform the exam. nicole 07:00 Reassessment: RECD REPORT FROM MAKENNA MACEDO. 31YO WF P/W PELVIC PAIN AND +UPT. bp 07:45 Reassessment: ALL CURRENT ORDERS COMPLETE. U/S RESULTS PENDING. bp 09:41 Reassessment: PT D/C HOME AMBULATORY, DX WITH UTI, OVARIAN CYST AND 8 WK IUP. bp Vital Signs: 05:53 BP 105 / 69; Pulse 59; Resp 14; Temp 98.3; Pulse Ox 100% on R/A; Pain 0/10; nicole 07:00 BP 107 / 65; Pulse 61; Resp 17; Pulse Ox 100% ; bp 09:00 BP 110 / 69; Pulse 60; Resp 16; Pulse Ox 100% ; bp ED Course: 05:10 Patient arrived in ED. tw5 05:13 Haris Watkins DO is Attending Physician. ms3 05:28 Makenna Barreto, RN is Primary Nurse. nicole 05:35 HCG-Quantitative Sent. nicole 05:35 CBC with Diff Sent. nicole 05:35 CMP Sent. nicole 05:35 Urine Microscopic Only Sent. nicole 05:46 HCG-Quantitative Sent. nicole 05:46 CBC with Diff Sent. nicole 05:46 CMP Sent. nicole 05:46 Urine Microscopic Only Sent. nicole 05:51 Triage completed. nicole 05:54 No provider procedures requiring assistance completed. Inserted saline lock: 20 gauge nicole in right antecubital area, using aseptic technique. Blood collected. 05:54 Bed in low position. Call light in reach. Side rails up X 1. nicole 05:54 Arm band placed on right wrist. nicole 07:07 Primary Nurse role handed off by Makenna Barreto, HELLEN bp 07:07 Dheeraj Perry, HELLEN is Primary Nurse. bp 07:12 US OB Limited In Process Unspecified. EDMS 07:22 Attending Physician role handed off by Haris Watkins DO ma2 07:22 Vicenta Griffin MD is Attending Physician. ma2 08:55 Mike Ambriz MD is Referral Physician. ma2 09:42 IV discontinued, intact, bleeding controlled, No redness/swelling at site. Pressure bp dressing applied. Administered Medications: 08:50 Drug: Rocephin (cefTRIAXone) 1 grams Route: IV; Rate: calculated rate; Site: right bp antecubital; 09:42 Follow up: IV Status: Completed infusion; IV Intake: 50ml bp Medication: 05:55 VIS not applicable for this client. nicole Intake: 09:42 IV: 50ml; Total: 50ml. bp Outcome: 05:55 Condition: stable nicole 08:55 Discharge ordered by . michelle 09:42 Discharged to home ambulatory, with family. bp 09:42 Discharge instructions given to patient, Instructed on discharge instructions, follow up and referral plans. medication usage, Demonstrated understanding of instructions, follow-up care, medications, Prescriptions given X 1. 09:43 Patient left the ED. bp Signatures: Dispatcher [employer] EDMS Dheeraj Perry, RN RN Vicenta Weldon MD MD ma2 Haris Watkins DO DO ms3 Zeenat Gordillo tw5 Makenna Barreto RN RN bo
--- NOTE | 2021-12-19 08:56 | EDPHYS ---
Physician Documentation [facility] Name: Venecia Aguilar Age: 31 yrs Sex: Female : 1990 Arrival Date: 12/19/2021 Time: 05:10 Bed 19 Private MD: ED Physician Vicenta Griffin HPI: 12/19 05:56 This 31 yrs old Female presents to ER via EMS with complaints of Lower abdominal pain. ms3 05:56 The patient presents with abdominal pain suprapubic. Onset: The symptoms/episode ms3 began/occurred 1 hour(s) ago. The symptoms do not radiate. Associated signs and symptoms: none. The symptoms are described as sharp. Modifying factors: The symptoms are alleviated by nothing, the symptoms are aggravated by nothing. 05:56 Severity of pain: At its worst the pain was moderate in the emergency department the ms3 pain is unchanged. Positive test on Monday; .. 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 - Social history:: Smoking status: Patient denies any tobacco usage or history of. ROS: 05:56 Constitutional: Negative for fever, and chills. Neck: Negative for injury, pain, and ms3 swelling, Cardiovascular: Negative for chest pain, and palpitations. Respiratory: Negative for shortness of breath, cough, wheezing, and pleuritic chest pain, MS/Extremity: Negative for injury and deformity, Skin: Negative for injury, rash, and discoloration, Psych: Negative for depression, anxiety, suicide ideation, homicidal ideation, and hallucinations. 05:56 Abdomen/GI: Positive for abdominal pain. Exam: 05:56 Constitutional: This is a well developed, well nourished patient who is awake, alert, ms3 and in no acute distress. Head/Face: Normocephalic, atraumatic. Eyes: Pupils equal round and reactive to light, extra-ocular motions intact. Lids and lashes normal. Conjunctiva and sclera are non-icteric and not injected. Periorbital areas with no swelling, redness, or edema. Chest/axilla: Normal chest wall appearance and motion. Nontender with no deformity. Cardiovascular: Regular rate and rhythm with a normal S1 and S2. No gallops, murmurs, or rubs. Normal PMI, no JVD. No pulse deficits. Respiratory: Lungs have equal breath sounds bilaterally, clear to auscultation and percussion. No rales, rhonchi or wheezes noted. No increased work of breathing, no retractions or nasal flaring. Skin: Warm, dry with normal turgor. Normal color with no rashes, no lesions, and no evidence of cellulitis. Psych: Awake, alert, with orientation to person, place and time. Behavior, mood, and affect are within normal limits. 05:56 Abdomen/GI: Inspection: abdomen appears normal, Bowel sounds: normal, Palpation: mild abdominal tenderness, in the suprapubic area. Vital Signs: 05:53 BP 105 / 69; Pulse 59; Resp 14; Temp 98.3; Pulse Ox 100% on R/A; Pain 0/10; nicole 07:00 BP 107 / 65; Pulse 61; Resp 17; Pulse Ox 100% ; bp 09:00 BP 110 / 69; Pulse 60; Resp 16; Pulse Ox 100% ; bp MDM: 05:15 Patient medically screened. ms3 05:56 Differential diagnosis: Ectopic , urinary tract infection, Ovarian cyst. ms3 Transition of care: After a detail discussion of the patient's case, care is transferred to Vicenta Griffin MD. 08:34 Data reviewed: vital signs, nurses notes. Counseling: I had a detailed discussion with ma2 the patient and/or guardian regarding: the historical points, exam findings, and any diagnostic results supporting the discharge/admit diagnosis, the presence of at least one elevated blood pressure reading (>120/80) during this emergency department visit, the need for outpatient follow up. Response to treatment: the patient's symptoms have markedly improved after treatment. ED course: Received signout from Dr. Watkins at shift change as 31 years old female with suprapubic abdominal pain pending ultrasound likely discharge. I evaluate the patient at 834, ultrasound shows IUP with bilateral complex ovarian cyst. Patient also has UTI she will get ceftriaxone IV here and discharged home on amoxicillin she will follow-up with bell captain for further evaluation of brain cyst.. 12/19 05:15 Order name: CBC with Diff; Complete Time: 08:26 ms3 12/19 05:15 Order name: CMP; Complete Time: 08:26 ms3 12/19 05:15 Order name: Urine Microscopic Only; Complete Time: 08:26 ms3 12/19 05:15 Order name: HCG-Quantitative; Complete Time: 08:26 ms3 12/19 06:19 Order name: Urine Culture EDMS 12/19 05:15 Order name: IV Saline Lock; Complete Time: 05:35 ms3 12/19 05:15 Order name: Labs collected and sent; Complete Time: 05:35 ms3 12/19 05:15 Order name: Urine Dipstick-Ancillary (obtain specimen); Complete Time: 07:43 ms3 12/19 05:15 Order name: US OB Limited; Complete Time: 08:33 ms3 12/19 07:02 Order name: Manual Differential; Complete Time: 08:26 EDMS 12/19 07:46 Order name: Urine Dipstick-Ancillary; Complete Time: 08:26 EDMS Administered Medications: 08:50 Drug: Rocephin (cefTRIAXone) 1 grams Route: IV; Rate: calculated rate; Site: right bp antecubital; 09:42 Follow up: IV Status: Completed infusion; IV Intake: 50ml bp Disposition Summary: 12/19/21 08:55 Discharge Ordered Location: Home ma2 Condition: Stable ma2 Diagnosis - 8 weeks gestation of - UTI, ovarian cyst ma2 Followup: ma2 - With: - When: Tomorrow - Reason: If symptoms return, Continuance of care Discharge Instructions: - Discharge Summary Sheet ma2 - Abdominal Pain During ma2 - Ovarian Cyst, [id number]-[id number]-[id number] ma2 Forms: - Medication Reconciliation Form ma2 - Thank You Letter ma2 - Antibiotic Education ma2 - Prescription Opioid Use ma2 - Work release form eb Prescriptions: - Amoxicillin 875 mg Oral Tablet - take 1 tablet by ORAL route every 12 hours for 10 days; 20 tablet; Refills: 0, ma2 Product Selection Permitted Signatures: Dispatcher [employer] Dheeraj Loya RN RN Vicenta Weldon MD MD ma2 Haris Watkins DO DO ms3 Makenna Barreto RN RN nicole Corrections: (The following items were deleted from the chart) 07:02 06:21 CBC Smear Scan ordered. EDMS EDMS
[2021-12-19] MEDS ORDERED: NA CHLORIDE 0.9% 100 ML IV ONE (09:10)
[2021-12-19] MEDS ORDERED: CEFTRIAXONE 1000 MG/VIAL ONE (09:10)
[2021-12-19 09:49] VITALS: TEMP 98.3; O2SAT 100
[2021-12-19 09:53] VITALS: BP 110/69
== END 2021-12-19 09:43 | disposition home or self-care (01) ==
LOC: ER 05:07
DX: O23.41 Unspecified infection of urinary tract in pregnancy, first trimester (principal); N39.0 Urinary tract infection, site not specified; O34.81 Maternal care for other abnormalities of pelvic organs, first trimester; N83.201 Unspecified ovarian cyst, right side; Z3A.08 8 weeks gestation of pregnancy
CPT/HCPCS: 36415; 76815; 80053; 81003; 81015; 84702; 85025; 87086; 87088; 96365; 99284

== ENCOUNTER 2022-01-25 18:45 | Emergency (ER) | payer OTHER ==
--- OUTSIDE RECORDS SUMMARY | 2022-01-25 18:48 | XMS REPORT | Continuity of Care Document ---
:1990 Author Organization [facility] t Address [address] [place] [address] Care Team Providers Name Role Phone Shira Medellin Primary Care Physician Brett RN, L Attending Clinician Unavailable hSira Medellin Attending Clinician Shira WILLIS Attending Clinician Unavailable Payers Payer Name Policy Type Policy Number Effective Date Expiration Date S ource Problems Condition Condition Condition Status Onset Resolution Last Treating Co mments Source Name Details Category Date Date Treatment Clinician Date Susceptibl Susceptibl Disease Active Overview : Univers e to e to 12-31 Formattin ity of varicella varicella 00:00: g of [place] (non-immun (non-immun 00 note Me dical e), e), might be Branch currently currently different from the original. Address pp Multiparit Multiparit Disease Active U nivers y y 12-30 ity of 00:00: [place] [address] Medical Branch History of History of Disease Active U nivers miscarriag miscarriag 12-30 it y of e e 00:00: [place] [address] Medical Branch Supervisio Supervisio Disease Active U nivers n of n of 12-30 [place] [facility] [place] Branch History of History of Disease Active U nivers depression depression 02-12 it y of 00:00: [place] 00 [facility] Cessation [...] Date Stop Date Quantity Comments Source ASSERTION 2021-11-02 University of 00:00:00 [place] [facility] History SDOH University o f Alcohol Std [place] [facility] Drinks [facility] History SDOH University o f Alcohol Binge [place] [facility] History SDOH University o f Alcohol Comment [place] [facility] Exposure to 2021-12-20 2021-12-30 Not sure University of SARS-CoV-2 00:00:00 14:11:00 [place] [facility] (event) [facility] Alcohol intake 2021-12-30 2021-12-30 Lifetime University of 00:00:00 00:00:00 non-drinker [place] [facility] (finding) [facility] Tobacco use and 2021-12-30 2021-12-30 Never used Universit y of exposure 00:00:00 00:00:00 [place] [facility] [place] History of 2021-10-30 Cigarette Smoker Universi ty of tobacco use 00:00:00 [place] [facility] History SDOH 2019-08-02 2019-08-02 1 University o f Alcohol Frequency 00:00:00 00:00:00 [place] [facility] Tobacco Comment 2019-08-02 2019-08-02 quit for Universit y of 00:00:00 00:00:00 [facility] Sex Ass[birth year] Universit y of 00:00:00 00:00:00 [facility] Smoking Status Start Date Stop Date Source Former smoker 2021-12-30 00:00:00 2021-12-30 00:00:00 Universi ty of [facility] Medications Ordered Filled Start Stop Current Ordering Indication Dosage Frequency Signature Comments Components Source Medication Medication Date Date Medication? Clinician (SIG) Name Name terconazole 2021- Yes [id number] 80mg Insert 1 Univers 80 mg 01-14 Suppositor ity of vaginal 00:00: 04:59 y into [place] suppository 00 :00 vagina at [facility] for 3 days. No known No Univers medications 12-30 ity of 14:15: [address] Immunizations Ordered Filled Immunization Date Status Comments Sourc e Immunization Name Name MMR 2020-02-14 Completed University 00:00:00 [facility] MMR 2020-02-14 Completed [facility] 00:00:00 [facility] TDAP 2019-12-03 Completed [facility] 00:00:00 [facility] TDAP 2019-12-03 Completed [facility] 00:00:00 [facility] Influenza Virus 2019-08-02 Completed Universit y of Vaccine Quad .5 mL 00:00:[address] [facility] [place], [place] 6+ MO Branch Influenza Virus 2019-08-02 Completed Universit y of Vaccine Quad .5 mL 00:00:[address] [facility] [place] [place] 6+ MO [place] Procedures This patient has no known procedures. Encounters Start End Encounter Admission Attending Care Care Encounter Source Date/Time Date/Time Type Type Clinicians Facility Department ID 2022-01-25 2022-01-25 Nurse RIGO [place] [id number] Univers 00:00:00 00:00:00 Triage Kayy RAMIREZ [id number] ity of [facility] [id number] Rahul as [id number] [address] 2022-01-14 2022-01-14 Telephone [facility] [id number] Univers 00:00:00 00:00:00 Darell Silva BUOY TENDER [id number] ity [facility] [id number] Rahul as MATERNAL [id number] [facility] & CHILD [address] [place] [address] 2021-12-30 2021-12-30 [facility] [id number] Univers 14:15:00 14:55:17 DARELL miller o f [facility] Results This patient has no known results.
[2022-01-25 20:07] LABS: Urine Blood 3+ (Negative); Urine Glucose Negative (Negative); Urine Protein 3+ (Negative); Urine pH 5.5 (5.0-7.0)
[2022-01-25 20:10] LABS: Absolute Lymphocytes (CBC) 2.9 K/uL (0.7-4.9); Hematocrit 33.6 % (36.0-45.0); Lymphocytes % 20.4 % (15.3-44.8); MPV 7.7 fL (7.6-11.3)
[2022-01-25 20:28] LABS: Potassium 3.8 mmol/L (3.5-5.1)
[2022-01-25] MEDS ORDERED: Ringers Lactate 1,000 ML IV ONE (20:30)
[2022-01-25] MEDS ORDERED: NITROFURAN MACRO 100 MG CAP PO ONE (20:30)
--- NOTE | 2022-01-25 21:29 | RAD REPORT ---
EXAM DESCRIPTION: US - OB Limited - 01/25/2022 9:13 pm CLINICAL HISTORY: VAGINAL BLEEDING COMPARISON: OB Limited dated 12/19/2021 FINDINGS: Single IUP identified. The crown-rump length measures 6.5 cm which is consistent with 12 w eeks 6 day. The GAMALIEL is 08/03/2022. heart rate measured at 157 beats/minute. The uterus measures 11.8 cm. Both ovaries are normal in size. Vascular flow is present. No free fluid. IMPRESSION: 1. Single IUP with positive heart tones measuring 12 weeks 6 day with GAMALIEL of 08/03. 2. Bilateral ovarian blood flow.
--- NOTE | 2022-01-25 22:10 | ER ---
Nurse's Notes [facility] Name: Venecia Aguilar Age: 31 yrs Sex: Female : 1990 Arrival Date: 01/25/2022 Time: 18:48 Bed 5 Private MD: Diagnosis: Threatened ;12 wk/6 D IUP Presentation: 01/25 19:17 Chief complaint: Patient states: "I'm about 13 14 weeks and I've had a very as6 stressful day and I went to the bathroom and I was bleeding" pt denies pain. Coronavirus screen: At this time, the client does not indicate any symptoms associated with coronavirus-19. Ebola Screen: No symptoms or risks identified at this time. Initial Sepsis Screen: Does the patient meet any 2 criteria? No. Patient's initial sepsis screen is negative. Does the patient have a suspected source of infection? No. Patient's initial sepsis screen is negative. Risk Assessment: Do you want to hurt yourself or someone else? Patient reports no desire to harm self or others. Onset of symptoms was January 25, 2022. 19:17 Method Of Arrival: Ambulatory as6 19:17 Acuity: ANSHUL 3 as6 Triage Assessment: 19:20 General: Appears in no apparent distress. Behavior is calm, cooperative. Pain: Denies as6 pain. : Reports vaginal bleeding that is bright red. 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 - Social history:: Smoking status: Reported history of juuling and/or vaping. Screenin:08 Abuse screen: Denies threats or abuse. Nutritional screening: No deficits noted. vc1 Tuberculosis screening: Fall Risk None identified. Assessment: 22:08 : Urine is blood tinged. vc1 22:10 Reassessment: Patient and/or family updated on plan of care and expected duration. Pain vc1 level reassessed. Patient is alert, oriented x 3, equal unlabored respirations, skin warm/dry/pink. : Reports vaginal bleeding that is bright red. Vital Signs: 19:17 BP 122 / 81; Pulse 63; Resp 18 S; Temp 98.6(TE); Pulse Ox 100% on R/A; Weight 49.9 kg as6 (R); Height 5 ft. 7 in. (170.18 cm) (R); Pain 0/10; 20:00 BP 107 / 72; Pulse 70; Resp 18; Pulse Ox 100% ; vc1 20:30 BP 103 / 65; Pulse 57; Resp 17; Pulse Ox 100% ; vc1 22:00 BP 105 / 73; Pulse 70; Resp 16 S; Pulse Ox 100% on R/A; vc1 19:17 Body Mass Index 17.23 (49.90 kg, 170.18 cm) as6 ED Course: 18:48 Patient arrived in ED. mr 19:19 Triage completed. as6 19:20 Arm band placed on. as6 19:33 Reyes Dickens MD is Attending Physician. kdr 20:06 Inserted saline lock: 20 gauge in right antecubital area, using aseptic technique. as6 Blood collected. 21:15 US OB Limited In Process Unspecified. EDMS 22:09 Patient has correct armband on for positive identification. Bed in low position. Call vc1 light in reach. Pulse ox on. NIBP on. 22:27 Jair White, HELLEN is Primary Nurse. ll3 22:27 No provider procedures requiring assistance completed. IV discontinued, intact, ll3 bleeding controlled, No redness/swelling at site. Pressure dressing applied. Administered Medications: 20:38 Drug: Lactated Ringers Solution 1000 ml Route: IV; Rate: 250 ml/hr; Site: right ll3 antecubital; 22:28 Follow up: Response: No adverse reaction; IV Status: Completed infusion; IV Intake: ll3 1000ml 20:38 Drug: Macrobid (nitrofurantoin) 100 mg Route: PO; ll3 22:28 Follow up: Response: No adverse reaction ll3 Medication: 22:27 VIS not applicable for this client. ll3 Intake: 22:28 IV: 1000ml; Total: 1000ml. ll3 Outcome: 22:09 Discharge ordered by . kdr 22:27 Discharged to home ambulatory. ll3 22:27 Condition: stable 22:27 Discharge instructions given to patient, Instructed on discharge instructions, follow up and referral plans. medication usage, Demonstrated understanding of instructions, follow-up care, medications, Prescriptions given X 1. 22:28 Patient left the ED. ll3 Signatures: Dispatcher [employer] EDMS Reyes Dickens MD MD kdr Rivera, Mary mr Slawson, Ashby, RN RN as6 Jair White RN RN ll3 Chery Canas RN RN vc1
--- NOTE | 2022-01-25 22:10 | EDPHYS ---
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 - Social history:: Smoking status: Reported history of juuling and/or vaping. Vital Signs: 19:17 BP 122 / 81; Pulse 63; Resp 18 S; Temp 98.6(TE); Pulse Ox 100% on R/A; Weight 49.9 kg as6 (R); Height 5 ft. 7 in. (170.18 cm) (R); Pain 0/10; 20:00 BP 107 / 72; Pulse 70; Resp 18; Pulse Ox 100% ; vc1 20:30 BP 103 / 65; Pulse 57; Resp 17; Pulse Ox 100% ; vc1 22:00 BP 105 / 73; Pulse 70; Resp 16 S; Pulse Ox 100% on R/A; vc1 19:17 Body Mass Index 17.23 (49.90 kg, 170.18 cm) as6 MDM: 22:09 Patient medically screened. kdr 01/25 19:34 Order name: Abo/rh Typing; Complete Time: 21:06 kdr 01/25 19:34 Order name: Basic Metabolic Panel; Complete Time: 21:06 kdr 01/25 19:34 Order name: CBC with Diff; Complete Time: 21:06 kdr 01/25 19:34 Order name: Quantitative Hcg; Complete Time: 21:06 kdr 01/25 20:06 Order name: Urine --Ancillary (enter results); Complete Time: 21:53 mw2 01/25 20:07 Order name: Urine Dipstick-Ancillary; Complete Time: 20:10 EDMS 01/25 19:34 Order name: IV Saline Lock; Complete Time: 20:05 kdr 01/25 19:34 Order name: Labs collected and sent; Complete Time: 20:05 kdr 01/25 19:34 Order name: NPO; Complete Time: 20:05 kdr 01/25 19:34 Order name: Urine Dipstick-Ancillary (obtain specimen); Complete Time: 20:05 kdr 01/25 20:06 Order name: Urine Test (obtain specimen); Complete Time: 20:06 mw2 01/25 20:10 Order name: US OB Limited; Complete Time: 21:53 kdr Administered Medications: 20:38 Drug: Lactated Ringers Solution 1000 ml Route: IV; Rate: 250 ml/hr; Site: right ll3 antecubital; 22:28 Follow up: Response: No adverse reaction; IV Status: Completed infusion; IV Intake: ll3 1000ml 20:38 Drug: Macrobid (nitrofurantoin) 100 mg Route: PO; ll3 22:28 Follow up: Response: No adverse reaction ll3 Disposition Summary: 01/25/22 22:09 Discharge Ordered Location: Home kdr Problem: new kdr Symptoms: are unchanged kdr Condition: Stable kdr Diagnosis - Threatened kdr - 12 wk/6 D IUP kdr Followup: kdr - With: Private Physician - When: 2 - 3 days - Reason: If symptoms return, Further diagnostic work-up, Recheck today's complaints, Continuance of care, Re-evaluation by your physician Discharge Instructions: - Discharge Summary Sheet kdr - Threatened Miscarriage kdr - Vaginal Bleeding During , Second Trimester kdr - Urinary Tract Infection, Adult, [id number] kdr - Vaginal Bleeding During , Second Trimester, [id number] kdr Forms: - Medication Reconciliation Form kdr - Thank You Letter kdr - Antibiotic Education kdr - Prescription Opioid Use kdr Prescriptions: - Macrobid 100 mg Oral Capsule - take 1 capsule by ORAL route every 12 hours for 10 days; 20 capsule; Refills: kdr 0, Product Selection Permitted Signatures: Dispatcher [employer] Reyes Nix MD MD kdr Sharyn Becker mw2 Willie Loo RN RN as6 Jair White RN RN ll3
[2022-01-25 23:07] VITALS: TEMP 98.6; O2SAT 100
[2022-01-25 23:12] VITALS: BP 105/73
== END 2022-01-25 22:28 | disposition home or self-care (01) ==
LOC: ER 18:45
DX: O20.0 Threatened abortion (principal); Z3A.12 12 weeks gestation of pregnancy; Z88.1 Allergy status to other antibiotic agents
CPT/HCPCS: 85025; 80048; 36415; 86900; 81025; 86901; 84702; 81003; 76815; J7120